=== PATIENT | male | born 1945 | race Caucasian/White ===

== ENCOUNTER 2017-11-12 08:55 | Inpatient (IN) | payer MEDICARE ==
[~2017-11-12] VITALS: Ht 188 cm; Wt 99.1 kg
[~2017-11-12 08:55] MED LIST: ACET325 PO; ASPI81CH PO; ATORVASTATIN CA10 MG PO; Atenolol25 MG PO; FERR325 PO; FINA5 PO; FURO20 PO; LEVO750 PO; METSALMENC TOP; Norco 10-325 T1 EACH PO; Nortriptyline H10 MG PO; OMEP20ER PO; OXYB5 PO; PRAV20 PO
[2017-11-12 09:35] LABS: BASOPHILS ABSOLUTE AUTO 0.03 K/mm3 (0.00-0.23); BASOPHILS PERCENT AUTO 0 % (0-2); EOSINOPHILS ABSOLUTE AUTO 0.02 K/mm3 (0.00-0.68); EOSINOPHILS PERCENT AUTO 0 % (0-6); Hematocrit 36.3 % (37.0-53.0); Hemoglobin 11.6 g/dL (13.5-17.5); IMMATURE GRAN ABSOLUTE AUTO 0.06 K/mm3 (0.00-0.10); IMMATURE GRAN PERCENT AUTO 1 % (0-1); LYMPHOCYTES ABSOLUTE AUTO 1.21 K/mm3 (0.84-5.20); LYMPHOCYTES PERCENT AUTO 12 % (21-46); MONOCYTES ABSOLUTE AUTO 0.38 K/mm3 (0.16-1.47); MONOCYTES PERCENT AUTO 4 % (4-13); Mean Corpuscular HGB 25.7 pg (26.0-34.0); Mean Corpuscular Volume 81 fL (80-100); Mean Platelet Volume 8.9 fL (9.1-12.4); NEUTROPHILS ABSOLUTE AUTO 8.84 K/mm3 (1.96-9.15); NEUTROPHILS PERCENT AUTO 84 % (41-73); Platelet Count 270 K/mm3 (150-400); RDW Coefficient Variation 15.8 % (11.7-14.2); RDW Standard Deviation 46.5 fL (35.1-46.3); Red Blood Cell Count 4.51 M/mm3 (4.30-5.90); White Blood Cell Count 10.54 K/mm3 (4.00-11.30)
[2017-11-12 09:48] LABS: Source, Urine Clean Catch
[2017-11-12 09:54] LABS: Alanine Aminotransfer (ALT/SGP 18 U/L (12-78); Albumin, Blood 3.4 g/dL (3.4-5.0); Albumin/Globulin Ratio 0.8 (0.8-1.8); Alk Phos 175 U/L (50-136); Anion Gap 13 mmol/L (6-16); Aspartate Aminotrans (AST/SGOT 17 U/L (12-37); Bilirubin, Total 0.2 mg/dL (0.1-1.0); Blood Urea Nitrogen 12 mg/dL (8-24); Bun/Creatinine Ratio 8.6 (12.0-20.0); CO2, Blood 23 mmol/L (21-32); Calcium, Blood 8.8 mg/dL (8.5-10.1); Chloride, Blood 103 mmol/L (98-108); Creatinine, Blood 1.39 mg/dL (0.60-1.20); Globulin, Blood 4.4 g/dL (2.2-4.0); Glomerular Filtration Rate 53 (60-); Glucose, Blood 200 mg/dL (70-99); Potassium, Blood 3.3 mmol/L (3.5-5.5); Sodium, Blood 139 mmol/L (136-145); Total Protein, Blood 7.8 g/dL (6.4-8.2); Troponin I <0.015 ng/mL (0.000-0.040)
[2017-11-12 10:02] LABS: Bilirubin, Urine Neg (Neg); Blood, Urine 3+ (Neg); Glucose Qualitative, Urine 2+ (Neg); Ketones, Urine 1+ (Neg); Leukocyte Esterase, Urine 3+ (Neg); Nitrite, Urine Neg (Neg); Protein, Urine 2+ (Neg); Specific Gravity, Urine 1.025 (1.003-1.022); Urobilinogen, Urine NORM (Normal)
[2017-11-12 10:43] LABS: Appearance, Urine Hazy (Clear); Color, Urine Yellow (P-Yellow)
[2017-11-12 10:45] LABS: White Blood Cells, Urine 25-50 /hpf (0-5)
[2017-11-12 10:46] LABS: Bacteria Mod /hpf; Squamous Epithelial Cells Few /hpf (Few); Uric Acid Crystals Mod /hpf
[2017-11-13 04:22] LABS: BASOPHILS ABSOLUTE AUTO 0.04 K/mm3 (0.00-0.23); BASOPHILS PERCENT AUTO 0 % (0-2); EOSINOPHILS ABSOLUTE AUTO 0.04 K/mm3 (0.00-0.68); EOSINOPHILS PERCENT AUTO 0 % (0-6); Hematocrit 36.8 % (37.0-53.0); Hemoglobin 11.3 g/dL (13.5-17.5); IMMATURE GRAN ABSOLUTE AUTO 0.05 K/mm3 (0.00-0.10); IMMATURE GRAN PERCENT AUTO 0 % (0-1); LYMPHOCYTES ABSOLUTE AUTO 3.35 K/mm3 (0.84-5.20); LYMPHOCYTES PERCENT AUTO 25 % (21-46); MONOCYTES ABSOLUTE AUTO 0.99 K/mm3 (0.16-1.47); MONOCYTES PERCENT AUTO 7 % (4-13); Mean Corpuscular HGB 24.8 pg (26.0-34.0); Mean Corpuscular HGB Conc 30.7 g/dL (31.5-36.5); Mean Corpuscular Volume 81 fL (80-100); Mean Platelet Volume 9.2 fL (9.1-12.4); NEUTROPHILS ABSOLUTE AUTO 9.02 K/mm3 (1.96-9.15); NEUTROPHILS PERCENT AUTO 67 % (41-73); Platelet Count 251 K/mm3 (150-400); RDW Coefficient Variation 16.4 % (11.7-14.2); RDW Standard Deviation 47.8 fL (35.1-46.3); Red Blood Cell Count 4.55 M/mm3 (4.30-5.90); White Blood Cell Count 13.49 K/mm3 (4.00-11.30)
[2017-11-13 04:53] LABS: Bun/Creatinine Ratio 10.3 (12.0-20.0); Calcium, Blood 8.4 mg/dL (8.5-10.1); Creatinine, Blood 1.36 mg/dL (0.60-1.20); Potassium, Blood 3.5 mmol/L (3.5-5.5)
[2017-11-14 04:51] LABS: BASOPHILS ABSOLUTE AUTO 0.04 K/mm3 (0.00-0.23); BASOPHILS PERCENT AUTO 1 % (0-2); EOSINOPHILS ABSOLUTE AUTO 0.23 K/mm3 (0.00-0.68); EOSINOPHILS PERCENT AUTO 3 % (0-6); Hematocrit 31.2 % (37.0-53.0); Hemoglobin 9.9 g/dL (13.5-17.5); IMMATURE GRAN ABSOLUTE AUTO 0.03 K/mm3 (0.00-0.10); IMMATURE GRAN PERCENT AUTO 0 % (0-1); LYMPHOCYTES PERCENT AUTO 32 % (21-46); MONOCYTES ABSOLUTE AUTO 0.55 K/mm3 (0.16-1.47); MONOCYTES PERCENT AUTO 6 % (4-13); Mean Corpuscular HGB 25.5 pg (26.0-34.0); Mean Corpuscular HGB Conc 31.7 g/dL (31.5-36.5); Mean Corpuscular Volume 80 fL (80-100); Mean Platelet Volume 9.1 fL (9.1-12.4); NEUTROPHILS ABSOLUTE AUTO 5.11 K/mm3 (1.96-9.15); NEUTROPHILS PERCENT AUTO 58 % (41-73); Platelet Count 229 K/mm3 (150-400); RDW Coefficient Variation 16.3 % (11.7-14.2); RDW Standard Deviation 47.5 fL (35.1-46.3); Red Blood Cell Count 3.88 M/mm3 (4.30-5.90); White Blood Cell Count 8.76 K/mm3 (4.00-11.30)
[2017-11-14 05:18] LABS: Bun/Creatinine Ratio 9.9 (12.0-20.0); Calcium, Blood 7.9 mg/dL (8.5-10.1); Creatinine, Blood 1.31 mg/dL (0.60-1.20); Potassium, Blood 3.3 mmol/L (3.5-5.5)
[2017-11-14] MEDS ORDERED: LEVE500 PO (13:55)
== END 2017-11-14 17:23 | disposition home or self-care (01) | DRG 699 ==
LOC: ER 08:55 → PCU 11:09 → MEDS 11:09 → EDBEDREQSVC 13:19 → MEDS 18:02 → PCU 18:10 → MEDS 11-13 16:44 → ENPENDDIS 11-14 13:46 → MEDS 11-14 17:23
PROVIDERS: Emergency Medicine; Internal Medicine
DX: T83.511A Infection and inflammatory reaction due to indwelling urethral catheter, initial encounter (principal); N17.9 Acute kidney failure, unspecified; N39.0 Urinary tract infection, site not specified; G40.409 Other generalized epilepsy and epileptic syndromes, not intractable, without status epilepticus; R40.2422 Glasgow coma scale score 9-12, at arrival to emergency department; I10 Essential (primary) hypertension; N40.1 Benign prostatic hyperplasia with lower urinary tract symptoms; R33.9 Retention of urine, unspecified; D64.9 Anemia, unspecified; Z79.82 Long term (current) use of aspirin; I67.9 Cerebrovascular disease, unspecified; R26.89 Other abnormalities of gait and mobility; E87.6 Hypokalemia; I69.322 Dysarthria following cerebral infarction; I69.391 Dysphagia following cerebral infarction
CPT/HCPCS: 36415; 70450; 70551; 80048; 80053; 81001; 84484; 85025; 87077; 87086; 87186; 92610; 93005; 93010; 96365; 96368; 96375; 99285; G8996; G8997; J0696; J1650; J1953; J2060; J2405; J7030; J7040

== ENCOUNTER 2018-01-12 11:01 | Inpatient (IN) | payer MEDICARE ==
[~2018-01-12] VITALS: Ht 182.9 cm; Wt 82.1 kg
[~2018-01-12 11:01] MED LIST changes: +LEVE500 PO; -OMEP20ER PO; +OMEPRAZOLE MAGN20 MG PO
[2018-01-12 11:45] LABS: Calcium, Ionized (POC) 1.16 mmol/L (1.10-1.46); Chloride (POC) 101 mmol/L (98-108); Creatinine (POC) 1.4 mg/dL (0.8-1.3); Glucose (ISTAT POC) 147 mg/dL (70-99); Hemoglobin (POC) 13.6 g/dL (13.5-17.5); Potassium (POC) 4.3 mmol/L (3.5-5.5); Sodium (POC) 141 mmol/L (135-148); Total CO2 (POC) 27 mmol/L (21-32)
[2018-01-12 11:46] LABS: BASOPHILS ABSOLUTE AUTO 0.04 K/mm3 (0.00-0.23); BASOPHILS PERCENT AUTO 0 % (0-2); EOSINOPHILS ABSOLUTE AUTO 0.01 K/mm3 (0.00-0.68); EOSINOPHILS PERCENT AUTO 0 % (0-6); Hematocrit 38.1 % (37.0-53.0); Hemoglobin 11.9 g/dL (13.5-17.5); IMMATURE GRAN ABSOLUTE AUTO 0.04 K/mm3 (0.00-0.10); IMMATURE GRAN PERCENT AUTO 0 % (0-1); LYMPHOCYTES PERCENT AUTO 18 % (21-46); MONOCYTES ABSOLUTE AUTO 0.41 K/mm3 (0.16-1.47); MONOCYTES PERCENT AUTO 4 % (4-13); Mean Corpuscular HGB 25.9 pg (26.0-34.0); Mean Corpuscular HGB Conc 31.2 g/dL (31.5-36.5); Mean Corpuscular Volume 83 fL (80-100); Mean Platelet Volume 9.4 fL (9.1-12.4); NEUTROPHILS ABSOLUTE AUTO 9.16 K/mm3 (1.96-9.15); NEUTROPHILS PERCENT AUTO 78 % (41-73); Platelet Count 303 K/mm3 (150-400); RDW Standard Deviation 48.5 fL (35.1-46.3); White Blood Cell Count 11.76 K/mm3 (4.00-11.30)
[2018-01-12 12:02] LABS: Albumin, Blood 3.9 g/dL (3.4-5.0); Albumin/Globulin Ratio 0.8 (0.8-1.8); Bilirubin, Total 0.4 mg/dL (0.1-1.0); Bun/Creatinine Ratio 12.4 (12.0-20.0); Calcium, Blood 9.2 mg/dL (8.5-10.1); Creatinine, Blood 1.37 mg/dL (0.60-1.20); Potassium, Blood 4.3 mmol/L (3.5-5.5); Total Protein, Blood 8.9 g/dL (6.4-8.2)
[2018-01-12 12:08] LABS: Source, Urine Catheter
[2018-01-12 12:21] LABS: Bilirubin, Urine Neg (Neg); Blood, Urine 4+ (Neg); Glucose Qualitative, Urine Neg (Neg); Ketones, Urine 1+ (Neg); Leukocyte Esterase, Urine 3+ (Neg); Nitrite, Urine Pos (Neg); Protein, Urine 3+ (Neg); Specific Gravity, Urine 1.015 (1.003-1.022); Urobilinogen, Urine NORM (Normal)
[2018-01-12 12:39] LABS: Appearance, Urine Turbid (Clear); Color, Urine Yellow (P-Yellow)
[2018-01-12 12:42] LABS: Amorphous Light (0-Heavy); Bacteria Mod /hpf; Hyaline Casts 0-2 /lpf (0-2); Mucus Mod (0-Heavy); Squamous Epithelial Cells Rare /hpf (Few); White Blood Cells, Urine 50-100 /hpf (0-5)
[2018-01-13 06:07] LABS: BASOPHILS ABSOLUTE AUTO 0.06 K/mm3 (0.00-0.23); BASOPHILS PERCENT AUTO 0 % (0-2); EOSINOPHILS ABSOLUTE AUTO 0.01 K/mm3 (0.00-0.68); EOSINOPHILS PERCENT AUTO 0 % (0-6); Hematocrit 37.1 % (37.0-53.0); Hemoglobin 11.1 g/dL (13.5-17.5); IMMATURE GRAN ABSOLUTE AUTO 0.13 K/mm3 (0.00-0.10); IMMATURE GRAN PERCENT AUTO 1 % (0-1); LYMPHOCYTES PERCENT AUTO 15 % (21-46); MONOCYTES ABSOLUTE AUTO 0.91 K/mm3 (0.16-1.47); MONOCYTES PERCENT AUTO 5 % (4-13); Mean Corpuscular HGB 25.1 pg (26.0-34.0); Mean Corpuscular HGB Conc 29.9 g/dL (31.5-36.5); Mean Corpuscular Volume 84 fL (80-100); Mean Platelet Volume 9.4 fL (9.1-12.4); NEUTROPHILS ABSOLUTE AUTO 14.22 K/mm3 (1.96-9.15); NEUTROPHILS PERCENT AUTO 79 % (41-73); Platelet Count 267 K/mm3 (150-400); RDW Coefficient Variation 16.3 % (11.7-14.2); RDW Standard Deviation 49.5 fL (35.1-46.3); Red Blood Cell Count 4.43 M/mm3 (4.30-5.90); White Blood Cell Count 18.13 K/mm3 (4.00-11.30)
[2018-01-13 06:28] LABS: Alanine Aminotransfer (ALT/SGP 18 U/L (12-78); Albumin, Blood 3.4 g/dL (3.4-5.0); Albumin/Globulin Ratio 0.8 (0.8-1.8); Alk Phos 115 U/L (50-136); Anion Gap 11 mmol/L (6-16); Aspartate Aminotrans (AST/SGOT 20 U/L (12-37); Bilirubin, Total 0.5 mg/dL (0.1-1.0); Blood Urea Nitrogen 28 mg/dL (8-24); Bun/Creatinine Ratio 24.3 (12.0-20.0); CO2, Blood 22 mmol/L (21-32); Calcium, Blood 8.8 mg/dL (8.5-10.1); Chloride, Blood 109 mmol/L (98-108); Creatinine, Blood 1.15 mg/dL (0.60-1.20); Globulin, Blood 4.2 g/dL (2.2-4.0); Glomerular Filtration Rate >60 (60-); Glucose, Blood 137 mg/dL (70-99); Magnesium, Blood 2.2 mg/dL (1.6-2.4); Potassium, Blood 3.9 mmol/L (3.5-5.5); Sodium, Blood 142 mmol/L (136-145); Total Protein, Blood 7.6 g/dL (6.4-8.2); Triglycerides 223 mg/dL (30-160); Very Low Density Lipoprot Chol 44 mg/dL (6-32)
[2018-01-13 06:32] LABS: CHOL/HDL RATIO 5.2; Cholesterol 176 mg/dL (50-200); HDL Cholesterol 34 mg/dL (>39); LDL/HDL RATIO 2.9; Low Density Lipoprotein Chol 97 mg/dL (0-110)
[2018-01-14 05:39] LABS: BASOPHILS ABSOLUTE AUTO 0.05 K/mm3 (0.00-0.23); BASOPHILS PERCENT AUTO 1 % (0-2); EOSINOPHILS ABSOLUTE AUTO 0.23 K/mm3 (0.00-0.68); EOSINOPHILS PERCENT AUTO 2 % (0-6); Hematocrit 30.9 % (37.0-53.0); Hemoglobin 9.4 g/dL (13.5-17.5); IMMATURE GRAN ABSOLUTE AUTO 0.04 K/mm3 (0.00-0.10); IMMATURE GRAN PERCENT AUTO 0 % (0-1); LYMPHOCYTES PERCENT AUTO 28 % (21-46); MONOCYTES ABSOLUTE AUTO 0.64 K/mm3 (0.16-1.47); MONOCYTES PERCENT AUTO 6 % (4-13); Mean Corpuscular HGB 25.3 pg (26.0-34.0); Mean Corpuscular HGB Conc 30.4 g/dL (31.5-36.5); Mean Corpuscular Volume 83 fL (80-100); Mean Platelet Volume 9.2 fL (9.1-12.4); NEUTROPHILS ABSOLUTE AUTO 6.42 K/mm3 (1.96-9.15); NEUTROPHILS PERCENT AUTO 63 % (41-73); Platelet Count 208 K/mm3 (150-400); RDW Coefficient Variation 16.4 % (11.7-14.2); RDW Standard Deviation 49.7 fL (35.1-46.3); Red Blood Cell Count 3.71 M/mm3 (4.30-5.90); White Blood Cell Count 10.28 K/mm3 (4.00-11.30)
[2018-01-14 06:33] LABS: Alanine Aminotransfer (ALT/SGP 23 U/L (12-78); Albumin/Globulin Ratio 0.8 (0.8-1.8); Alk Phos 104 U/L (50-136); Anion Gap 7 mmol/L (6-16); Aspartate Aminotrans (AST/SGOT 21 U/L (12-37); Bilirubin, Total 0.4 mg/dL (0.1-1.0); Blood Urea Nitrogen 20 mg/dL (8-24); CO2, Blood 25 mmol/L (21-32); Chloride, Blood 111 mmol/L (98-108); Creatinine, Blood 1.25 mg/dL (0.60-1.20); Globulin, Blood 3.8 g/dL (2.2-4.0); Glomerular Filtration Rate >60 (60-); Glucose, Blood 118 mg/dL (70-99); Sodium, Blood 143 mmol/L (136-145); Total Protein, Blood 6.8 g/dL (6.4-8.2)
[2018-01-15 05:16] LABS: BASOPHILS ABSOLUTE AUTO 0.04 K/mm3 (0.00-0.23); BASOPHILS PERCENT AUTO 0 % (0-2); EOSINOPHILS ABSOLUTE AUTO 0.19 K/mm3 (0.00-0.68); EOSINOPHILS PERCENT AUTO 2 % (0-6); Hematocrit 29.5 % (37.0-53.0); Hemoglobin 9.1 g/dL (13.5-17.5); IMMATURE GRAN ABSOLUTE AUTO 0.03 K/mm3 (0.00-0.10); IMMATURE GRAN PERCENT AUTO 0 % (0-1); LYMPHOCYTES ABSOLUTE AUTO 2.35 K/mm3 (0.84-5.20); LYMPHOCYTES PERCENT AUTO 26 % (21-46); MONOCYTES ABSOLUTE AUTO 0.69 K/mm3 (0.16-1.47); MONOCYTES PERCENT AUTO 8 % (4-13); Mean Corpuscular HGB 25.5 pg (26.0-34.0); Mean Corpuscular HGB Conc 30.8 g/dL (31.5-36.5); Mean Corpuscular Volume 83 fL (80-100); Mean Platelet Volume 9.5 fL (9.1-12.4); NEUTROPHILS ABSOLUTE AUTO 5.68 K/mm3 (1.96-9.15); NEUTROPHILS PERCENT AUTO 63 % (41-73); Platelet Count 186 K/mm3 (150-400); RDW Coefficient Variation 16.2 % (11.7-14.2); RDW Standard Deviation 48.4 fL (35.1-46.3); Red Blood Cell Count 3.57 M/mm3 (4.30-5.90); White Blood Cell Count 8.98 K/mm3 (4.00-11.30)
[2018-01-15 06:02] LABS: Albumin, Blood 2.8 g/dL (3.4-5.0); Albumin/Globulin Ratio 0.8 (0.8-1.8); Bilirubin, Total 0.4 mg/dL (0.1-1.0); Bun/Creatinine Ratio 12.5 (12.0-20.0); Creatinine, Blood 1.28 mg/dL (0.60-1.20); Globulin, Blood 3.7 g/dL (2.2-4.0); Potassium, Blood 3.8 mmol/L (3.5-5.5); Total Protein, Blood 6.5 g/dL (6.4-8.2)
[2018-01-15] MEDS ORDERED: QUET25 PO (15:05)
[2018-01-15] MEDS ORDERED: LEVFLO500 PO (15:05)
== END 2018-01-15 16:32 | disposition home health service (06) | DRG 70 ==
LOC: ER 11:01 → MEDS 13:29
PROVIDERS: Internal Medicine
DX: G93.40 Encephalopathy, unspecified (principal); J18.9 Pneumonia, unspecified organism; N17.9 Acute kidney failure, unspecified; R47.01 Aphasia; N39.0 Urinary tract infection, site not specified; F03.90 Unspecified dementia, unspecified severity, without behavioral disturbance, psychotic disturbance, mood disturbance, and anxiety; I12.9 Hypertensive chronic kidney disease with stage 1 through stage 4 chronic kidney disease, or unspecified chronic kidney disease; N18.3 Chronic kidney disease, stage 3 (moderate); I67.9 Cerebrovascular disease, unspecified; G40.909 Epilepsy, unspecified, not intractable, without status epilepticus; D72.829 Elevated white blood cell count, unspecified; Z79.899 Other long term (current) drug therapy; Z79.82 Long term (current) use of aspirin; Z86.73 Personal history of transient ischemic attack (TIA), and cerebral infarction without residual deficits
CPT/HCPCS: 36415; 70450; 71046; 80047; 80053; 80061; 81001; 83735; 83880; 84484; 85014; 85025; 87077; 87086; 87186; 92526; 92610; 93005; 93010; 97162; 97166; 97530; 97535; 99285-25; G8978; G8979; G8987; G8988; G8996; G8997; J0456; J0696; J1650; J2060; J2405; J7030; J7050

== ENCOUNTER 2018-03-25 04:47 | Inpatient (IN) | payer MEDICARE ==
[~2018-03-25] VITALS: Ht 182.9 cm; Wt 104.5 kg
[~2018-03-25 04:47] MED LIST changes: +AMOX875 PO; +ASCO500 PO; +Aspirin EC81 MG PO; +CHOL10002 PO; +DOCU100 PO; +Ferrous Sulfat325 M2 PO; +GAVILAX17 GM PO; +LEVFLO500 PO; +QUET25 PO
[2018-03-25 05:04] LABS: BASOPHILS ABSOLUTE AUTO 0.03 K/mm3 (0.00-0.23); BASOPHILS PERCENT AUTO 0 % (0-2); EOSINOPHILS ABSOLUTE AUTO 0.06 K/mm3 (0.00-0.68); EOSINOPHILS PERCENT AUTO 1 % (0-6); Hematocrit 29.1 % (37.0-53.0); Hemoglobin 8.5 g/dL (13.5-17.5); IMMATURE GRAN ABSOLUTE AUTO 0.05 K/mm3 (0.00-0.10); IMMATURE GRAN PERCENT AUTO 1 % (0-1); LYMPHOCYTES ABSOLUTE AUTO 0.87 K/mm3 (0.84-5.20); LYMPHOCYTES PERCENT AUTO 8 % (21-46); MONOCYTES ABSOLUTE AUTO 0.58 K/mm3 (0.16-1.47); MONOCYTES PERCENT AUTO 5 % (4-13); Mean Corpuscular HGB 24.6 pg (26.0-34.0); Mean Corpuscular HGB Conc 29.2 g/dL (31.5-36.5); Mean Corpuscular Volume 84 fL (80-100); NEUTROPHILS PERCENT AUTO 85 % (41-73); RDW Coefficient Variation 16.3 % (11.7-14.2); RDW Standard Deviation 50.4 fL (35.1-46.3); Red Blood Cell Count 3.45 M/mm3 (4.30-5.90); White Blood Cell Count 10.89 K/mm3 (4.00-11.30)
[2018-03-25 05:24] LABS: Alanine Aminotransfer (ALT/SGP 23 U/L (12-78); Albumin, Blood 2.9 g/dL (3.4-5.0); Albumin/Globulin Ratio 0.7 (0.8-1.8); Alk Phos 156 U/L (50-136); Anion Gap 14 mmol/L (6-16); Aspartate Aminotrans (AST/SGOT 24 U/L (12-37); Bilirubin, Total 0.2 mg/dL (0.1-1.0); Blood Urea Nitrogen 14 mg/dL (8-24); Bun/Creatinine Ratio 11.5 (12.0-20.0); CO2, Blood 18 mmol/L (21-32); Calcium, Blood 7.7 mg/dL (8.5-10.1); Chloride, Blood 109 mmol/L (98-108); Creatinine, Blood 1.22 mg/dL (0.60-1.20); Globulin, Blood 4.4 g/dL (2.2-4.0); Glomerular Filtration Rate >60 (60-); Glucose, Blood 165 mg/dL (70-99); Potassium, Blood 3.6 mmol/L (3.5-5.5); Sodium, Blood 141 mmol/L (136-145); Total Protein, Blood 7.3 g/dL (6.4-8.2)
[2018-03-25] MEDS ORDERED: FURO40 PO (05:25)
[2018-03-25 05:31] LABS: Mean Platelet Volume 8.8 fL (9.1-12.4); Platelet Count 131 K/mm3 (150-400)
[2018-03-25 17:09] LABS: Source, Urine Clean Catch
[2018-03-25 17:26] LABS: Appearance, Urine Clear (Clear); Bilirubin, Urine Neg (Neg); Blood, Urine Neg (Neg); Color, Urine Yellow (P-Yellow); Glucose Qualitative, Urine Neg (Neg); Ketones, Urine Neg (Neg); Leukocyte Esterase, Urine Neg (Neg); Nitrite, Urine Neg (Neg); Protein, Urine Neg (Neg); Urobilinogen, Urine NORM (Normal); pH, Urine 6.5 (5.0-8.0)
[2018-03-25 17:41] LABS: U Amphetamine Screen Not Detected; U Barbituate Screen Not Detected; U Benzodiazapine Screen Not Detected; U Cocaine Screen Not Detected; U Methadone Screen Not Detected; U Methamphetamine Screen Not Detected; U Opiates Screen DETECTED; U Phencyclidine Screen Not Detected
[2018-03-25 17:42] LABS: U Buprenorphine Screen Not Detected; U Cannabinoids Screen Not Detected; U Oxycodone Screen Not Detected; U Propoxyphene Screen Not Detected
[2018-03-26 05:43] LABS: Hematocrit 25.6 % (37.0-53.0); Hemoglobin 7.7 g/dL (13.5-17.5); Mean Corpuscular HGB 24.4 pg (26.0-34.0); Mean Corpuscular HGB Conc 30.1 g/dL (31.5-36.5); Mean Platelet Volume 8.2 fL (9.1-12.4); Platelet Count 328 K/mm3 (150-400); RDW Coefficient Variation 16.4 % (11.7-14.2); Red Blood Cell Count 3.16 M/mm3 (4.30-5.90); White Blood Cell Count 6.88 K/mm3 (4.00-11.30)
[2018-03-26 05:46] LABS: Mean Corpuscular Volume 81 fL (80-100)
[2018-03-26 06:03] LABS: Alanine Aminotransfer (ALT/SGP 19 U/L (12-78); Albumin, Blood 2.5 g/dL (3.4-5.0); Albumin/Globulin Ratio 0.7 (0.8-1.8); Alk Phos 140 U/L (50-136); Anion Gap 6 mmol/L (6-16); Aspartate Aminotrans (AST/SGOT 25 U/L (12-37); Bilirubin, Total 0.4 mg/dL (0.1-1.0); Blood Urea Nitrogen 10 mg/dL (8-24); Bun/Creatinine Ratio 8.3 (12.0-20.0); CO2, Blood 28 mmol/L (21-32); Calcium, Blood 7.6 mg/dL (8.5-10.1); Chloride, Blood 111 mmol/L (98-108); Globulin, Blood 3.7 g/dL (2.2-4.0); Glomerular Filtration Rate >60 (60-); Glucose, Blood 107 mg/dL (70-99); Potassium, Blood 3.2 mmol/L (3.5-5.5); Sodium, Blood 145 mmol/L (136-145); Total Protein, Blood 6.2 g/dL (6.4-8.2)
[2018-03-27 04:10] LABS: BASOPHILS ABSOLUTE AUTO 0.03 K/mm3 (0.00-0.23); BASOPHILS PERCENT AUTO 0 % (0-2); EOSINOPHILS PERCENT AUTO 3 % (0-6); Hemoglobin 8.2 g/dL (13.5-17.5); IMMATURE GRAN ABSOLUTE AUTO 0.02 K/mm3 (0.00-0.10); IMMATURE GRAN PERCENT AUTO 0 % (0-1); LYMPHOCYTES ABSOLUTE AUTO 2.38 K/mm3 (0.84-5.20); LYMPHOCYTES PERCENT AUTO 35 % (21-46); MONOCYTES ABSOLUTE AUTO 0.37 K/mm3 (0.16-1.47); MONOCYTES PERCENT AUTO 6 % (4-13); Mean Corpuscular HGB 23.9 pg (26.0-34.0); Mean Corpuscular HGB Conc 29.3 g/dL (31.5-36.5); Mean Corpuscular Volume 82 fL (80-100); Mean Platelet Volume 8.5 fL (9.1-12.4); NEUTROPHILS ABSOLUTE AUTO 3.72 K/mm3 (1.96-9.15); NEUTROPHILS PERCENT AUTO 55 % (41-73); Platelet Count 394 K/mm3 (150-400); RDW Coefficient Variation 16.2 % (11.7-14.2); RDW Standard Deviation 48.6 fL (35.1-46.3); Red Blood Cell Count 3.43 M/mm3 (4.30-5.90); White Blood Cell Count 6.72 K/mm3 (4.00-11.30)
[2018-03-27 04:33] LABS: Anion Gap 8 mmol/L (6-16); Blood Urea Nitrogen 12 mg/dL (8-24); Bun/Creatinine Ratio 10.4 (12.0-20.0); CO2, Blood 26 mmol/L (21-32); Calcium, Blood 8.2 mg/dL (8.5-10.1); Chloride, Blood 108 mmol/L (98-108); Creatinine, Blood 1.15 mg/dL (0.60-1.20); Glomerular Filtration Rate >60 (60-); Glucose, Blood 117 mg/dL (70-99); Potassium, Blood 3.3 mmol/L (3.5-5.5); Sodium, Blood 142 mmol/L (136-145)
[2018-03-27] MEDS ORDERED: Aspir 8181 MG PO (10:19)
[2018-03-27] MEDS ORDERED: XARELTO20 MG PO (10:20)
== END 2018-03-27 16:17 | disposition home or self-care (01) | DRG 101 ==
LOC: ER 04:47 → PCU 06:32
PROVIDERS: Emergency Medicine; Internal Medicine
DX: G40.909 Epilepsy, unspecified, not intractable, without status epilepticus (principal); G93.40 Encephalopathy, unspecified; Z86.73 Personal history of transient ischemic attack (TIA), and cerebral infarction without residual deficits; N40.0 Benign prostatic hyperplasia without lower urinary tract symptoms; Z79.82 Long term (current) use of aspirin; Z87.440 Personal history of urinary (tract) infections; G89.29 Other chronic pain; N18.1 Chronic kidney disease, stage 1; I67.9 Cerebrovascular disease, unspecified; D64.9 Anemia, unspecified; I12.9 Hypertensive chronic kidney disease with stage 1 through stage 4 chronic kidney disease, or unspecified chronic kidney disease
CPT/HCPCS: 36415; 70450; 71045; 80048; 80053; 80177; 81003; 82330; 83605; 83735; 84145; 85025; 85027; 90686; 92526; 92610; 93005; 93010; 93971; 96374; 97162; 97166; 97530; 97535; 99285-25; G0008; G8978; G8979; G8980; G8987; G8988; G8989; G8996; G8997; G8998; J0690; J1650; J1953; J7030

== ENCOUNTER 2018-06-10 14:16 | Inpatient (IN) | payer OTHER, MEDICARE ==
[~2018-06-10] VITALS: Ht 182.9 cm; Wt 107.9 kg
[~2018-06-10 14:16] MED LIST changes: +Aspir 8181 MG PO; +FURO40 PO; +XARELTO20 MG PO
[2018-06-10] MEDS ORDERED: HYDR1TAB94 PO (14:29)
--- NOTE | 2018-06-10 22:47 | NUR ---
PATIENT ADMISSION THE PATIENT WAS ADMITTED TO THE SURGICAL FLOOR AT 1930 FOR ACUTE APPENDICITIS. THE PATIENT HAD A ELEVATED LACTIC ACID ON ADMISSION AT 3.4. THE PATIENT WAS ALERT TO PLACE, DAY AND PERSON, BUT COULD NOT TELL ME ABOUT THE LAST TIME HE TOOK HIS MEDICATIONS. THE PATIENT IS INCONTENTENT OF URINE. PATIENT'S ADMISSION WAS COMPLETED AND IV FLUIDS WERE STARTED. THE PATIENT RECEIVED ORDERS FOR A 3000 ML BOLUS OF LAC RIN. AT 2200. THE BOLUS IS INFUSING, WILL CONTINUE TO MONITOR.
[2018-06-11 04:52] LABS: BASOPHILS ABSOLUTE AUTO 0.05 K/mm3 (0.00-0.23); BASOPHILS PERCENT AUTO 0 % (0-2); EOSINOPHILS ABSOLUTE AUTO 0.07 K/mm3 (0.00-0.68); EOSINOPHILS PERCENT AUTO 1 % (0-6); Hemoglobin 9.2 g/dL (13.5-17.5); IMMATURE GRAN ABSOLUTE AUTO 0.08 K/mm3 (0.00-0.10); IMMATURE GRAN PERCENT AUTO 1 % (0-1); LYMPHOCYTES ABSOLUTE AUTO 2.16 K/mm3 (0.84-5.20); LYMPHOCYTES PERCENT AUTO 15 % (21-46); MONOCYTES ABSOLUTE AUTO 0.61 K/mm3 (0.16-1.47); MONOCYTES PERCENT AUTO 4 % (4-13); Mean Corpuscular HGB 22.3 pg (26.0-34.0); Mean Corpuscular HGB Conc 28.8 g/dL (31.5-36.5); Mean Corpuscular Volume 78 fL (80-100); Mean Platelet Volume 8.3 fL (9.1-12.4); NEUTROPHILS PERCENT AUTO 80 % (41-73); Platelet Count 296 K/mm3 (150-400); RDW Coefficient Variation 18.9 % (11.7-14.2); RDW Standard Deviation 53.9 fL (35.1-46.3); Red Blood Cell Count 4.13 M/mm3 (4.30-5.90); White Blood Cell Count 14.47 K/mm3 (4.00-11.30)
[2018-06-11 05:22] LABS: Albumin, Blood 2.6 g/dL (3.4-5.0); Albumin/Globulin Ratio 0.7 (0.8-1.8); Bilirubin, Total 0.9 mg/dL (0.1-1.0); Bun/Creatinine Ratio 9.2 (12.0-20.0); Calcium, Blood 7.9 mg/dL (8.5-10.1); Creatinine, Blood 1.3 mg/dL (0.60-1.20); Globulin, Blood 3.9 g/dL (2.2-4.0); Potassium, Blood 3.8 mmol/L (3.5-5.5); Total Protein, Blood 6.5 g/dL (6.4-8.2)
--- NOTE | 2018-06-11 06:27 | NUR ---
SUMMARY FUID BOLUS COMPLETED, PT TOLERATED WELL, LUNGS REMAIN DIMISHED IN BASES, NO CRACKLES NOTED. PT REMAINS ON 2 L O2 VIA NC. VSS, PAIN MEDICATED X1 WITH 25 MCG IV FENATANYL PER EMAR. PT IS INCONTINENT OF URINE BUT HAS GOTTEN UP TO THE BSC X2. ATTENDS CHANGED PRN. LR INFUSING 100 ML/HR. PT IS NSR PER TELE MONITOR. NPO SINCE ADMISSION. WCTM, CALL LIGHT IN REACH
--- NOTE | 2018-06-11 07:00 | NUR ---
REPORT RECEIVED. ASSUMED PT CARE AT THIS TIME.
--- NOTE | 2018-06-11 07:30 | NUR ---
PT RESTING IN POSITION OF COMFORT. DENIES IMMEDIATE NEEDS. PT SLOW TO RESPOND. WARM BLANKET PROVIDED.
--- NOTE | 2018-06-11 09:16 | NUR ---
RIGHT AC IV INTACT AND INFUSING WELL. PT APPEARS TO HAVE REMOVED OTHER IV ACCESS. NO SIGNS OF BLEEDING NOTED.
--- NOTE | 2018-06-11 09:42 | NUR ---
PT MEDICATED PER EMAR. CARLOSN.
--- NOTE | 2018-06-11 09:47 | NUR ---
PT MEDICATED PER EMAR. PT RESPONSIVE. ABLE TO ANSWER YES/NO QUESTIONS.
--- NOTE | 2018-06-11 10:50 | NUR ---
DR DEMPSEY TO ROOM. PLAN TO ALLOW CLEAR LIQUID DIET TODAY AND PT TO OR TOMORROW.
--- NOTE | 2018-06-11 11:14 | NUR ---
AT BEDSIDE. UPDATED ON PLAN OF CARE RE . PT MEDICATED WITH FENTANYL FOR PAIN. ABX STARTED.
--- NOTE | 2018-06-11 12:11 | NUR ---
pt lying in position of comfort. lunch tray placed at bedside.
--- NOTE | 2018-06-11 13:30 | NUR ---
pt lying in position of comfort. nadn will cont to monitor. states pain is "ok" right now.
--- NOTE | 2018-06-11 15:05 | NUR ---
PT RESTING IN POSITION OF COMFORT. OLGA LIDIA.
--- NOTE | 2018-06-11 17:25 | NUR ---
PT RESTING. NADN. CALL LIGHT IN REACH.
--- NOTE | 2018-06-11 18:23 | NUR ---
ABX STARTED, REAPPLIED PTS O2. CALL LIGHT IN REACH. NADN.
--- NOTE | 2018-06-12 02:29 | NUR ---
HOSPITALIST NOTIFIED OF PT VOMITING ALL OVER HIMSELF WHILE SLEEPING, POSSIBLE ASPIRATION, AND INCREASED ABDOMINAL DISTENTION. NG INSERTION WAS ORDERED IF PT CONTINUES TO VOMIT. PT'S CURRENT IV ABX WILL COVER ASPIRATION PNEUMONIA PER HOSPITALIST, NO CHEST XRAY ORDERED AT THIS TIME. VSS, RESP UNLABORED. PT WAS GIVEN A BED BATH, LINENS WERE CHANGED AND ORAL CARE WAS DONE.
[2018-06-12 06:50] LABS: BASOPHILS ABSOLUTE AUTO 0.02 K/mm3 (0.00-0.23); BASOPHILS PERCENT AUTO 0 % (0-2); EOSINOPHILS ABSOLUTE AUTO 0.02 K/mm3 (0.00-0.68); EOSINOPHILS PERCENT AUTO 0 % (0-6); Hematocrit 29.9 % (37.0-53.0); Hemoglobin 8.6 g/dL (13.5-17.5); IMMATURE GRAN ABSOLUTE AUTO 0.07 K/mm3 (0.00-0.10); IMMATURE GRAN PERCENT AUTO 1 % (0-1); LYMPHOCYTES ABSOLUTE AUTO 1.57 K/mm3 (0.84-5.20); LYMPHOCYTES PERCENT AUTO 14 % (21-46); MONOCYTES ABSOLUTE AUTO 0.66 K/mm3 (0.16-1.47); MONOCYTES PERCENT AUTO 6 % (4-13); Mean Corpuscular HGB 22.3 pg (26.0-34.0); Mean Corpuscular HGB Conc 28.8 g/dL (31.5-36.5); Mean Corpuscular Volume 78 fL (80-100); Mean Platelet Volume 8.3 fL (9.1-12.4); NEUTROPHILS ABSOLUTE AUTO 9.27 K/mm3 (1.96-9.15); NEUTROPHILS PERCENT AUTO 80 % (41-73); Platelet Count 270 K/mm3 (150-400); RDW Coefficient Variation 18.8 % (11.7-14.2); RDW Standard Deviation 53.1 fL (35.1-46.3); Red Blood Cell Count 3.85 M/mm3 (4.30-5.90); White Blood Cell Count 11.61 K/mm3 (4.00-11.30)
[2018-06-12 07:06] LABS: Albumin, Blood 2.1 g/dL (3.4-5.0); Anion Gap 7 mmol/L (6-16); Blood Urea Nitrogen 15 mg/dL (8-24); Bun/Creatinine Ratio 11.9 (12.0-20.0); CO2, Blood 26 mmol/L (21-32); Calcium, Blood 7.7 mg/dL (8.5-10.1); Chloride, Blood 111 mmol/L (98-108); Creatinine, Blood 1.26 mg/dL (0.60-1.20); Glomerular Filtration Rate 59 (60-); Glucose, Blood 153 mg/dL (70-99); Phosphorus, Blood 2.3 mg/dL (2.5-4.9); Potassium, Blood 3.9 mmol/L (3.5-5.5); Sodium, Blood 144 mmol/L (136-145)
--- NOTE | 2018-06-12 12:21 | NUR ---
PT LEFT FLOOR VIA BED WITH DAYSURGERY - OR
--- NOTE | 2018-06-12 12:24 | NUR ---
BROUGHT TO [facility] FROM SUGICAL FLOOR ROOM 226 AFTER DOING TWO PATIENT IDENTIFICATION. ADMISSION TO UNIT STARTED
--- NOTE | 2018-06-12 12:57 | NUR ---
NEW IV STARTED IN LAC AND LR AND 1200 ANTIBIOTIC STARTED AND CHARTED
--- NOTE | 2018-06-12 14:26 | NUR ---
06/12/18 1426 Gretchen Neff PT ON SCHEDULED ANTIBIOTICS AND RECIEVED PRIOR TO ARRIVAL TO OR.
--- NOTE | 2018-06-12 17:41 | NUR ---
SHIFT SUMMARY PT TRANSFERRED TO ICU FROM PACU. DELIVERED ALL PERSONAL ITEMS, INCLUDING DENTURES TO STALIN KAPADIA RN AND GAVE REPORT.
--- NOTE | 2018-06-12 18:14 | NUR ---
ASSUMED CARE: PT TRANSFER FROM DAY SURGERY AND SURGICAL FLOOR. REPORT RECIEVED FROM DAVID. PT IS QUIET IN BED. ON 15L VIA NONREBREATHER. SATTING 94% ON THIS. LUNG SOUNDS DIMINISHED IN BASES. PT WILL OPEN EYES, SQUEEZE HANDS BUT DOES NOT STAY AWAKE FOR LONG. SRINATH DRAIN IN PLACE PUTTING OUT ORANGE DRAINAGE. NG TUBE IN PLACE AT LIS. CALL TO DR GALE TO ENSURE THAT THIS ORDER WAS TO CONTINUE. ATTENDS IN PLACE. ABX, LACTATED RINGERS RUNNING AT THIS TIME PER ORDERS
--- NOTE | 2018-06-12 19:00 | NUR ---
ASSUMED CARE ASSUMED CARE OF PATIENT. CONTINUES TO BE DROWSY, BUT ROUSES TO VERBAL STIMULI. MOVES ALL EXTREMITES WEAKLY AND TO COMMAND. VERY SLOW AND MINIMAL VERBAL RESPONSE. REMAINS ON 15L NRB AT THIS TIME- WILL TRANSITION TO NS WHEN POSSIBLE. RESPIRATIONS EVEN AND UNLABORED. MONITOR SHOWS NSR, RATE 60-70s. BP STABLE. ABD SLIGHLTY DISTENDED, SOFT, WITH HYPOACTIVE BTs. LOWER ABD DRSG C/D/I. SRINATH DRAIN WITH SMALL AMOUNT OF SEROSANGUINOUS DRAINAGE. PAS TO BLE. LR INFUSING @ 100CC/HR PER ORDER. SEE SHIFT ASSESSMENT FOR FULL ASSESSMENT.
[2018-06-13 03:55] LABS: BASOPHILS ABSOLUTE AUTO 0.01 K/mm3 (0.00-0.23); BASOPHILS PERCENT AUTO 0 % (0-2); EOSINOPHILS PERCENT AUTO 0 % (0-6); Hematocrit 31.6 % (37.0-53.0); Hemoglobin 8.7 g/dL (13.5-17.5); IMMATURE GRAN ABSOLUTE AUTO 0.05 K/mm3 (0.00-0.10); IMMATURE GRAN PERCENT AUTO 1 % (0-1); LYMPHOCYTES ABSOLUTE AUTO 1.01 K/mm3 (0.84-5.20); LYMPHOCYTES PERCENT AUTO 10 % (21-46); MONOCYTES ABSOLUTE AUTO 0.24 K/mm3 (0.16-1.47); MONOCYTES PERCENT AUTO 2 % (4-13); Mean Corpuscular HGB 22.3 pg (26.0-34.0); Mean Corpuscular HGB Conc 27.5 g/dL (31.5-36.5); Mean Corpuscular Volume 81 fL (80-100); Mean Platelet Volume 8.9 fL (9.1-12.4); NEUTROPHILS ABSOLUTE AUTO 8.73 K/mm3 (1.96-9.15); NEUTROPHILS PERCENT AUTO 87 % (41-73); Platelet Count 254 K/mm3 (150-400); RDW Coefficient Variation 18.6 % (11.7-14.2); RDW Standard Deviation 54.4 fL (35.1-46.3); Red Blood Cell Count 3.91 M/mm3 (4.30-5.90); White Blood Cell Count 10.04 K/mm3 (4.00-11.30)
--- NOTE | 2018-06-13 04:00 | NUR ---
NG TUBE PT PULLED OUT NG TUBE. TUBE HAD MINIMAL DRAINAGE OUT T/O NOC (APPROXIMATELY 20CC) SO WILL NOT REPLACE NG AT THIS TIME AND WILL CONTINUE TO MONITOR.
[2018-06-13 04:12] LABS: Albumin, Blood 1.9 g/dL (3.4-5.0); Anion Gap 5 mmol/L (6-16); Blood Urea Nitrogen 14 mg/dL (8-24); Bun/Creatinine Ratio 12.5 (12.0-20.0); CO2, Blood 23 mmol/L (21-32); Calcium, Blood 7.7 mg/dL (8.5-10.1); Chloride, Blood 114 mmol/L (98-108); Creatinine, Blood 1.12 mg/dL (0.60-1.20); Glomerular Filtration Rate >60 (60-); Glucose, Blood 163 mg/dL (70-99); Phosphorus, Blood 2.5 mg/dL (2.5-4.9); Potassium, Blood 4.7 mmol/L (3.5-5.5); Sodium, Blood 142 mmol/L (136-145)
--- NOTE | 2018-06-13 06:18 | NUR ---
SHIFT SUMMARY NO ACUTE CHANGES DURING NOC. SLEPT INTERMITTENTLY. CONTINUES TO BE CONFUSED. ANSWERS YES/NO QUESTIONS APPROPRIATELY. DENIES C/O PAIN WHEN ASKED. MINIMAL AND SLOW VERBAL RESPONSE. PT OCCASIONALLY PULLS OFF GOWN AND LEADS. VSS T/O NOC. O2 NOW @ 2LNC. RESPIRATIONS EVEN AND UNLABORED. OCCASIONAL MOIST NON-PRODUCTIVE COUGH. WILL ATTEMPT INCENTIVE SPIROMETRY NOW THAT PT IS MORE ALERT. ABD DRSG C/D/I. SRINATH DRAIN WITH 140CC SEROSANGUINOUS DRAINAGE. PAS AND CONY HOSE IN PLACE TO BLE. WILL REPORT TO DAY SHIFT RN WHEN AVAILABLE.
--- NOTE | 2018-06-13 07:11 | NUR ---
ASSUMED CARE: PT RESTING QUIETLY. ON 2L VIA NC. NO ACUTE NEEDS OR CONCERNS AT THIS TIME. NG OUT. WILL DISCUSS WITH MD. NIGHT RN STATES IT WAS NOT GETTING MUCH OUTPUT.
--- NOTE | 2018-06-13 07:53 | NUR ---
DR KIRK IN TO SEE PT. HE IS AWAKE, RESPONDS, ORIENTED TO SELF, STATES HE IS IN [place] IN THE HOSPITAL. FOLLOWS DIRECTIONS. DR KIRK AWARE THAT NG IS OUT. REQUESTS THAT THIS RN ASK DR GALE IF NG CAN STAY OUT, IF XARELTO CAN BE STARTED, AND IF PT CAN EAT. NO FURTHER CHANGES OR NEEDS. WATCHING TV AT THIS TIME
--- NOTE | 2018-06-13 08:31 | NUR ---
ATTEMPTED TO CALL DR GALE TO ASK QUESTIONS FOR ORDERS REGARDING THIS PT. IS IN OR, MESSAGE LEFT WITH NURSE FOR HIM TO CALL BACK
--- NOTE | 2018-06-13 08:47 | NUR ---
REPORT CALLED TO CATRACHO CARROLL. CATRACHO AWARE OF QUESTIONS FOR DR GALE ABOUT NG TUBE, XARELTO, AND IF PT COULD EAT OR DRINK. SPEECH EVAL PUT IN DUE TO PT'S HISTORY OF APHASIA. PT SITTING UPRIGHT IN BED. KEPPRA RUNNING. NO FURTHER NEEDS OR CONCERNS AT THIS TIME
--- NOTE | 2018-06-13 09:17 | NUR ---
PT TAKEN TO SURGICAL FLOOR VIA BED BY ROBYN
--- NOTE | 2018-06-13 09:51 | NUR ---
ARRIVAL TO UNIT PT ARRIVED TO UNIT AND TRANSFERRED INTO BED. BEDDING WAS SOILED UPON ARRIVAL AND LINENS CHANGED. ATTENDS IN PLACE AND DRY AT THIS TIME. PT ALERT AND ORIENTED, SLOW TO RESPOND WITH SLURRED SPEECH R/T TO HX OF STROKE. PT DENIES PAIN, N/V. DRESSINGS TO ABD ARE CDI. SRINATH EMPTIED AT THIS TIME. ICE CHIPS AND WATER GIVEN TO PT. IVF INFUSING PER ORDERS. ON 2L O2 VIA NC. CALL LIGHT WITHIN REACH. WILL CONT TO MONITOR.
--- NOTE | 2018-06-13 17:14 | NUR ---
SHIFT SUMMARY NO ACUTE CHANGES SINCE ARRIVAL TO UNIT. PT CONTINUES TO DENY PAIN, JOSELO CLEAR LIQ DIET, A+0. ATTENDS CHANGED PRN. IVF INFUSING PER ORDERS. SRINATH DRAIN EMPTIED PRN. LAP SITES TO ABD REMAIN CDI. CALL LIGHT WITHIN REACH. FAMILY IN INTERMITTENTLY T/O DAY.
--- NOTE | 2018-06-14 04:43 | NUR ---
PT IV SITE LEAKING, SERVERAL ATTEMPTS MADE FROM 2 RN'S AND ICU CHARGE ABLE TO START IV. 0000 UNASYN NOT ABLE TO BE STARTED TIL 0300. NEXT DOSE RETIMED FOR 1200.
--- NOTE | 2018-06-14 04:54 | NUR ---
SUMMARY: PT IS POD2 FOR LAP APPY. NO ACUTE CHANGE TONIGHT. VSS. PT WEAK (STROKE HX) AND NEEDS HELP TURNING, ATTEND CHANGES FREQUENTLY. PT HAS DENIED PAIN, HAD PROJECTILE VOMIT AT ABOUT 0345, MODERATE AMOUNT AND YOO IN COLOR, PT DENIED NAUSEA SOON AFTER. NO BM THIS SHIFT. SURGICAL SITES WNL. ABOUT 140ML DRAINED FROM SRINATH. NEW IV SITE INFUSING. NO ACUTE CONCERNS AT THIS TIME
[2018-06-14 06:02] LABS: BASOPHILS ABSOLUTE AUTO 0.03 K/mm3 (0.00-0.23); BASOPHILS PERCENT AUTO 0 % (0-2); EOSINOPHILS ABSOLUTE AUTO 0.05 K/mm3 (0.00-0.68); EOSINOPHILS PERCENT AUTO 0 % (0-6); Hematocrit 31.8 % (37.0-53.0); Hemoglobin 9.3 g/dL (13.5-17.5); IMMATURE GRAN PERCENT AUTO 1 % (0-1); LYMPHOCYTES ABSOLUTE AUTO 2.66 K/mm3 (0.84-5.20); LYMPHOCYTES PERCENT AUTO 20 % (21-46); MONOCYTES ABSOLUTE AUTO 0.92 K/mm3 (0.16-1.47); MONOCYTES PERCENT AUTO 7 % (4-13); Mean Corpuscular HGB 22.4 pg (26.0-34.0); Mean Corpuscular HGB Conc 29.2 g/dL (31.5-36.5); Mean Platelet Volume 8.6 fL (9.1-12.4); NEUTROPHILS ABSOLUTE AUTO 9.87 K/mm3 (1.96-9.15); NEUTROPHILS PERCENT AUTO 73 % (41-73); Platelet Count 289 K/mm3 (150-400); RDW Coefficient Variation 18.6 % (11.7-14.2); RDW Standard Deviation 51.5 fL (35.1-46.3); Red Blood Cell Count 4.15 M/mm3 (4.30-5.90); White Blood Cell Count 13.63 K/mm3 (4.00-11.30)
[2018-06-14 06:04] LABS: Mean Corpuscular Volume 77 fL (80-100)
[2018-06-14 06:23] LABS: Albumin, Blood 2.2 g/dL (3.4-5.0); Anion Gap 10 mmol/L (6-16); Blood Urea Nitrogen 15 mg/dL (8-24); Bun/Creatinine Ratio 13.3 (12.0-20.0); CO2, Blood 25 mmol/L (21-32); Calcium, Blood 7.7 mg/dL (8.5-10.1); Chloride, Blood 109 mmol/L (98-108); Creatinine, Blood 1.13 mg/dL (0.60-1.20); Glomerular Filtration Rate >60 (60-); Glucose, Blood 117 mg/dL (70-99); Phosphorus, Blood 1.7 mg/dL (2.5-4.9); Potassium, Blood 3.6 mmol/L (3.5-5.5); Sodium, Blood 144 mmol/L (136-145)
--- NOTE | 2018-06-14 17:38 | NUR ---
SUMMARY NO ACUTE CHANGES T/O SHIFT. PT SLEEPY T/O DAY. STOOD AT SIDE OF BED AND TRANSFERRED TO CHAIR W/2 PERSON MODERATE ASSIST. INCONTINENT OF URINE. POOR PO INTAKE DURING SHIFT. SWALLOWED PILL W/SIP OF WATER WITHOUT DIFFICULTY. DIFFICULT TO UNDERSTAND VERBALIZATION AT TIMES. PLEASANT AND COOPERATIVE.
[2018-06-15 04:13] LABS: BASOPHILS ABSOLUTE AUTO 0.03 K/mm3 (0.00-0.23); BASOPHILS PERCENT AUTO 0 % (0-2); EOSINOPHILS ABSOLUTE AUTO 0.28 K/mm3 (0.00-0.68); EOSINOPHILS PERCENT AUTO 4 % (0-6); Hematocrit 29.5 % (37.0-53.0); Hemoglobin 8.4 g/dL (13.5-17.5); IMMATURE GRAN ABSOLUTE AUTO 0.03 K/mm3 (0.00-0.10); IMMATURE GRAN PERCENT AUTO 0 % (0-1); LYMPHOCYTES ABSOLUTE AUTO 2.08 K/mm3 (0.84-5.20); LYMPHOCYTES PERCENT AUTO 26 % (21-46); MONOCYTES ABSOLUTE AUTO 0.51 K/mm3 (0.16-1.47); MONOCYTES PERCENT AUTO 6 % (4-13); Mean Corpuscular HGB 21.8 pg (26.0-34.0); Mean Corpuscular HGB Conc 28.5 g/dL (31.5-36.5); Mean Corpuscular Volume 77 fL (80-100); Mean Platelet Volume 8.4 fL (9.1-12.4); NEUTROPHILS ABSOLUTE AUTO 5.12 K/mm3 (1.96-9.15); NEUTROPHILS PERCENT AUTO 64 % (41-73); Platelet Count 297 K/mm3 (150-400); RDW Coefficient Variation 18.5 % (11.7-14.2); Red Blood Cell Count 3.85 M/mm3 (4.30-5.90); White Blood Cell Count 8.05 K/mm3 (4.00-11.30)
[2018-06-15 04:37] LABS: Albumin, Blood 2.2 g/dL (3.4-5.0); Anion Gap 8 mmol/L (6-16); Blood Urea Nitrogen 13 mg/dL (8-24); Bun/Creatinine Ratio 11.7 (12.0-20.0); CO2, Blood 27 mmol/L (21-32); Calcium, Blood 7.6 mg/dL (8.5-10.1); Chloride, Blood 108 mmol/L (98-108); Creatinine, Blood 1.11 mg/dL (0.60-1.20); Glomerular Filtration Rate >60 (60-); Glucose, Blood 114 mg/dL (70-99); Phosphorus, Blood 2.1 mg/dL (2.5-4.9); Potassium, Blood 3.3 mmol/L (3.5-5.5); Sodium, Blood 143 mmol/L (136-145)
--- NOTE | 2018-06-15 06:20 | NUR ---
SUMMARY PT SLEPT OFF AND ON TONIGHT. MINIMAL INTERACTION WITH STAFF VERBALLY. ANSWERS WITH SIMPLE WORDS AND FEW STATEMENT.IS ABLE TO ASSIST SOME WITH REPOSITIONING IN BE. PT HAS HX CVA WITH RESULTANT APHASIA AND L SIDE WEAKER THAN R. PT DID HOWEVER AT ONE POINT SEPERATE HIS SRINATH FROM HIS TUBE CAUSING IT TO SPLASH AND WHEN HE WAS ASKED WHY? SAID BECAUSE HE WANTS TO GO HOME.I DISCUSSED RISKS AND NOT SAFE/APPROPRIATE TO DO SO AND WILL NOT CHANGE WHEN HE WILL BE ABLE TO GO HOME. I ADVISED HE SPEAK WITH HIS DR REGARDING THIS IN AM.BED ALARM REMAINS ON. PT WITH NO FURTHER ISSUES REGARDING SRINATH.
--- NOTE | 2018-06-15 18:02 | NUR ---
SUMMARY ASSUMED CARE OF PT THIS AFTERNOON, 2 PERSON MAX ASSIST BACK TO BED, DOESN'T FOLLOW DIRECTIONS, PT EVAL ORDERED BY DR. KIRK, HAVE NOT BEEN ABLE TO REACH TO NOTIFY HER PT IS NOT GOING HOME TODAY SHE WAS TOLD EARLIER, MESSAGE LEFT AND MULTIPLE CALLS ATTEMPTED.
[2018-06-16 05:33] LABS: BASOPHILS ABSOLUTE AUTO 0.03 K/mm3 (0.00-0.23); BASOPHILS PERCENT AUTO 0 % (0-2); EOSINOPHILS ABSOLUTE AUTO 0.36 K/mm3 (0.00-0.68); EOSINOPHILS PERCENT AUTO 4 % (0-6); Hematocrit 29.4 % (37.0-53.0); Hemoglobin 8.5 g/dL (13.5-17.5); IMMATURE GRAN ABSOLUTE AUTO 0.07 K/mm3 (0.00-0.10); IMMATURE GRAN PERCENT AUTO 1 % (0-1); LYMPHOCYTES ABSOLUTE AUTO 2.12 K/mm3 (0.84-5.20); LYMPHOCYTES PERCENT AUTO 26 % (21-46); MONOCYTES ABSOLUTE AUTO 0.44 K/mm3 (0.16-1.47); MONOCYTES PERCENT AUTO 5 % (4-13); Mean Corpuscular HGB 21.7 pg (26.0-34.0); Mean Corpuscular HGB Conc 28.9 g/dL (31.5-36.5); Mean Corpuscular Volume 75 fL (80-100); Mean Platelet Volume 8.5 fL (9.1-12.4); NEUTROPHILS ABSOLUTE AUTO 5.19 K/mm3 (1.96-9.15); NEUTROPHILS PERCENT AUTO 63 % (41-73); Platelet Count 290 K/mm3 (150-400); RDW Coefficient Variation 18.6 % (11.7-14.2); RDW Standard Deviation 50.6 fL (35.1-46.3); Red Blood Cell Count 3.91 M/mm3 (4.30-5.90); White Blood Cell Count 8.21 K/mm3 (4.00-11.30)
[2018-06-16 05:53] LABS: Albumin, Blood 2.2 g/dL (3.4-5.0); Anion Gap 7 mmol/L (6-16); Blood Urea Nitrogen 12 mg/dL (8-24); Bun/Creatinine Ratio 9.9 (12.0-20.0); CO2, Blood 27 mmol/L (21-32); Calcium, Blood 7.7 mg/dL (8.5-10.1); Chloride, Blood 109 mmol/L (98-108); Creatinine, Blood 1.21 mg/dL (0.60-1.20); Glomerular Filtration Rate >60 (60-); Glucose, Blood 113 mg/dL (70-99); Phosphorus, Blood 2.7 mg/dL (2.5-4.9); Potassium, Blood 3.3 mmol/L (3.5-5.5); Sodium, Blood 143 mmol/L (136-145)
--- NOTE | 2018-06-16 07:35 | NUR ---
POD 4 S/P LAP APPY. PT VSS T/O NIGHT; DRESSINGS CDI. PT DENIED PAIN/N/V. PO INTAKE MINIMAL, FLUIDS ENC W/ROUNDING. PT INCONTINENT OF URINE, ATTENDS CHANGED PRN. CALL LIGHT IN REACH, BED ALARM ON. REP GIVEN TO DAY RN.
--- NOTE | 2018-06-16 16:57 | NUR ---
SHIFT SUMMARY PT HAS DONE WELL THIS SHIFT, DENIES PAIN. UP WITH PT/OT THIS SHIFT-TOLERATED WELL BUT STILL WEAK-DECLINED GETTING UP TO CHAIR. IVF DISCONTINUED. PLAN IS TO DC TO SNF ONCE BED AVAILABLE
[2018-06-17 05:42] LABS: BASOPHILS ABSOLUTE AUTO 0.03 K/mm3 (0.00-0.23); BASOPHILS PERCENT AUTO 0 % (0-2); EOSINOPHILS ABSOLUTE AUTO 0.21 K/mm3 (0.00-0.68); EOSINOPHILS PERCENT AUTO 2 % (0-6); Hematocrit 29.1 % (37.0-53.0); Hemoglobin 8.5 g/dL (13.5-17.5); IMMATURE GRAN ABSOLUTE AUTO 0.06 K/mm3 (0.00-0.10); IMMATURE GRAN PERCENT AUTO 1 % (0-1); LYMPHOCYTES ABSOLUTE AUTO 1.97 K/mm3 (0.84-5.20); LYMPHOCYTES PERCENT AUTO 23 % (21-46); MONOCYTES ABSOLUTE AUTO 0.37 K/mm3 (0.16-1.47); MONOCYTES PERCENT AUTO 4 % (4-13); Mean Corpuscular HGB 21.9 pg (26.0-34.0); Mean Corpuscular HGB Conc 29.2 g/dL (31.5-36.5); Mean Corpuscular Volume 75 fL (80-100); Mean Platelet Volume 8.3 fL (9.1-12.4); NEUTROPHILS ABSOLUTE AUTO 6.06 K/mm3 (1.96-9.15); NEUTROPHILS PERCENT AUTO 70 % (41-73); Platelet Count 324 K/mm3 (150-400); RDW Coefficient Variation 18.6 % (11.7-14.2); RDW Standard Deviation 50.7 fL (35.1-46.3); Red Blood Cell Count 3.88 M/mm3 (4.30-5.90)
[2018-06-17 06:09] LABS: Albumin, Blood 2.4 g/dL (3.4-5.0); Anion Gap 9 mmol/L (6-16); Blood Urea Nitrogen 11 mg/dL (8-24); Bun/Creatinine Ratio 8.9 (12.0-20.0); CO2, Blood 26 mmol/L (21-32); Calcium, Blood 7.8 mg/dL (8.5-10.1); Chloride, Blood 107 mmol/L (98-108); Creatinine, Blood 1.23 mg/dL (0.60-1.20); Glomerular Filtration Rate >60 (60-); Glucose, Blood 124 mg/dL (70-99); Phosphorus, Blood 2.9 mg/dL (2.5-4.9); Potassium, Blood 3.5 mmol/L (3.5-5.5); Sodium, Blood 142 mmol/L (136-145)
--- NOTE | 2018-06-17 07:53 | NUR ---
SUMMARY: POD [address] GALE. VSS, AFEBRILE, TOLERATING PO INTAKE WELL AND HAD LARGE BM THIS SHIFT WITH HEAVY VOIDS. CONTINUE PT/OT WHILE AWAITING SNF BED AVAILABILITY. DENIES PAIN, N/V AND MOVES WELL IN BED WITH MINIMAL ASSIST.
--- NOTE | 2018-06-17 17:03 | NUR ---
SHIFT SUMMARY PT HAS DONE WELL THIS SHIFT. DENIES PAIN, UP TO CHAIR ALL SHIFT. 2 PERSON ASSIST FOR ALL TRANSFERS. PLAN IS TO DC HOME TOMORROW WITH HOME HEALTH SINCE REFUSED SNF.
--- NOTE | 2018-06-18 04:41 | NUR ---
SUMMARY: POD [address] GALE. VSS, AFEBRILE, ROOM AIR WITH GOOD TCDB EFFORT AND IS USE. DENIES PAIN, N/V AND IS TOLERATING REGULAR SOFT DIET. CONTINUES HEAVY INCONTINENT VOIDS. PT APPEARS MORE ALERT AND VOCALIZES WISHES WITH STAFF. PLAN TO DC HOME HE SHARES WITH WITH HOME HEALTH THIS DAY.
--- NOTE | 2018-06-18 07:00 | NUR ---
recvd bedside report from previous shift rn summer, pt sleeping in bed, bed in lowest position, call light within reach, bed rails up x 2
--- NOTE | 2018-06-18 10:14 | NUR ---
pt sitting up in chair, provided morning care, tolerating diet and morning medications
--- NOTE | 2018-06-18 10:40 | NUR ---
supercharger mechanicjose cruz jin called pt's to request she be present for discharge teaching done by PT. Pt's states she will be coming to the hospital in "a little while"
--- NOTE | 2018-06-18 10:50 | NUR ---
dr pittman roundaaron on pt, pt states he is passing flatus
[2018-06-18] MEDS ORDERED: Augmentin 875-1 EACH PO (10:55)
[2018-06-18] MEDS ORDERED: POTCHL10ER PO (10:56)
--- NOTE | 2018-06-18 14:50 | NUR ---
PT Zuleima checked in to see if pt's has arrived yet for discharge teaching. This RN called pt's , no answer.
--- NOTE | 2018-06-18 14:58 | NUR ---
pt sitting up in chair. on questioning, pt slow to answer and uses one word or shakes/nod head.
--- NOTE | 2018-06-18 17:05 | NUR ---
international manager Traci contacted pt's to ascertain if she is still planning on taking pt home today. Pt's states she is planning on taking pt home. Traci ascertained the 's understanding of pt's care needs, that he is a 2 person transfer and will require physical therapy. pt's states this understanding, and stated to Traci that she has a caregiver for the pt. pt's states she will be arriving at the hospital this evening. Dr Luevano has been notifed of pt's status, will notify her again at 1830 of whether or not pt has left the hospital yet.
--- NOTE | 2018-06-18 17:29 | NUR ---
shift summary: pt remained a/0, vss, slow to respond and uses one work responses per baseline. pt up in chair from breakfast to dinner, stood x 2 with two person assist, fww and gait belt. tolerated po intake with no n/v. incontinent urine output of 3 heavily wet attends and insert. pt is planning discharge, states she is planning to pick him up this evening. discharge paperwork complete. see note of [id number] for adult daycare coordinator/PT involvement.
--- NOTE | 2018-06-18 18:25 | NUR ---
pt's and friends arrived to transport pt home. discharge instructions provided, printed materials given. pt transferred to wheelchair with gait belt and fww with two nursing staff. pt transferred to awaiting vehicle via wheelchair and two nursing staff. pt's belongings transferred to vehicle by family friend. pt's reports they have a mine production engineer to assist them until home health comes. pt wore gait belt home for better assistance. dr alvarez notified pt discharged.
== END 2018-06-18 19:35 | disposition home health service (06) | DRG 341 ==
LOC: ER 14:16 → MEDS 17:57 → SURS 17:57 → ICUE 06-12 17:01 → SURS 06-13 09:04
PROVIDERS: Family Medicine; Surgery; ADMIT Internal Medicine
PROC: 0DTJ4ZZ Resection of Appendix, Percutaneous Endoscopic Approach (ICD-10-PCS; principal; 2018-06-12 13:30)
DX: K35.80 Unspecified acute appendicitis (principal); N17.0 Acute kidney failure with tubular necrosis; J96.01 Acute respiratory failure with hypoxia; J98.11 Atelectasis; E87.2 Acidosis; E87.1 Hypo-osmolality and hyponatremia; E83.39 Other disorders of phosphorus metabolism; E87.6 Hypokalemia; K21.9 Gastro-esophageal reflux disease without esophagitis; I12.9 Hypertensive chronic kidney disease with stage 1 through stage 4 chronic kidney disease, or unspecified chronic kidney disease; N18.3 Chronic kidney disease, stage 3 (moderate); Z74.09 Other reduced mobility; F03.90 Unspecified dementia, unspecified severity, without behavioral disturbance, psychotic disturbance, mood disturbance, and anxiety; D63.1 Anemia in chronic kidney disease; G40.909 Epilepsy, unspecified, not intractable, without status epilepticus; N40.1 Benign prostatic hyperplasia with lower urinary tract symptoms; G89.4 Chronic pain syndrome; E83.51 Hypocalcemia; R33.8 Other retention of urine; I69.920 Aphasia following unspecified cerebrovascular disease; Z86.718 Personal history of other venous thrombosis and embolism; Z79.01 Long term (current) use of anticoagulants; Z79.82 Long term (current) use of aspirin; Z79.899 Other long term (current) drug therapy
CPT/HCPCS: 36415; 71046; 80053; 80069; 83605; 85025; 87040; 88304; 92523; 96365; 97110; 97162; 97167; 97530; 97535; 99285-25; C9113; J0295; J1100; J1885; J1940; J1953; J2370; J2405; J3010; J7030; J7060; J7120

== ENCOUNTER 2018-07-27 08:34 | Emergency (ER) | payer MEDICARE ==
[~2018-07-27] VITALS: Ht 182.9 cm; Wt 127.0 kg
[~2018-07-27 08:34] MED LIST changes: -ASCO500 PO; -Aspir 8181 MG PO; +Augmentin 875-1 EACH PO; +HYDR1TAB94 PO; -LEVE500 PO; -OMEPRAZOLE MAGN20 MG PO; -XARELTO20 MG PO
[2018-07-27 09:32] LABS: BASOPHILS ABSOLUTE AUTO 0.03 K/mm3 (0.00-0.23); BASOPHILS PERCENT AUTO 0 % (0-2); EOSINOPHILS ABSOLUTE AUTO 0.01 K/mm3 (0.00-0.68); EOSINOPHILS PERCENT AUTO 0 % (0-6); Hematocrit 32.4 % (37.0-53.0); Hemoglobin 9.4 g/dL (13.5-17.5); IMMATURE GRAN ABSOLUTE AUTO 0.09 K/mm3 (0.00-0.10); IMMATURE GRAN PERCENT AUTO 1 % (0-1); LYMPHOCYTES ABSOLUTE AUTO 0.88 K/mm3 (0.84-5.20); LYMPHOCYTES PERCENT AUTO 7 % (21-46); MONOCYTES ABSOLUTE AUTO 0.49 K/mm3 (0.16-1.47); MONOCYTES PERCENT AUTO 4 % (4-13); Mean Corpuscular HGB 22.1 pg (26.0-34.0); Mean Corpuscular Volume 76 fL (80-100); Mean Platelet Volume 8.4 fL (9.1-12.4); NEUTROPHILS ABSOLUTE AUTO 11.38 K/mm3 (1.96-9.15); NEUTROPHILS PERCENT AUTO 88 % (41-73); Platelet Count 325 K/mm3 (150-400); RDW Coefficient Variation 18.3 % (11.7-14.2); RDW Standard Deviation 49.9 fL (35.1-46.3); Red Blood Cell Count 4.26 M/mm3 (4.30-5.90); White Blood Cell Count 12.88 K/mm3 (4.00-11.30)
[2018-07-27 09:48] LABS: Alanine Aminotransfer (ALT/SGP 19 U/L (12-78); Albumin, Blood 3.1 g/dL (3.4-5.0); Albumin/Globulin Ratio 0.7 (0.8-1.8); Alk Phos 144 U/L (50-136); Anion Gap 11 mmol/L (6-16); Aspartate Aminotrans (AST/SGOT 14 U/L (12-37); Bilirubin, Total 0.2 mg/dL (0.1-1.0); Blood Urea Nitrogen 10 mg/dL (8-24); Bun/Creatinine Ratio 8.5 (12.0-20.0); CO2, Blood 22 mmol/L (21-32); Calcium, Blood 8.4 mg/dL (8.5-10.1); Chloride, Blood 106 mmol/L (98-108); Creatinine, Blood 1.18 mg/dL (0.60-1.20); Globulin, Blood 4.4 g/dL (2.2-4.0); Glomerular Filtration Rate >60 (60-); Glucose, Blood 147 mg/dL (70-99); Potassium, Blood 3.5 mmol/L (3.5-5.5); Sodium, Blood 139 mmol/L (136-145); Total Protein, Blood 7.5 g/dL (6.4-8.2)
[2018-07-27 13:05] LABS: Influenza A Negative (NEGATIVE); Influenza B Negative (NEGATIVE)
[2018-07-27] MEDS ORDERED: ONDA4ODT MM (13:36)
[2018-07-27] MEDS ORDERED: Zithromax250 MG PO (13:36)
== END 2018-07-27 14:58 | disposition home or self-care (01) ==
LOC: ER 08:34
PROVIDERS: Emergency Medicine
DX: G40.909 Epilepsy, unspecified, not intractable, without status epilepticus (principal); J18.9 Pneumonia, unspecified organism; R11.10 Vomiting, unspecified; I10 Essential (primary) hypertension; D64.9 Anemia, unspecified
CPT/HCPCS: 36415; 71045; 80053; 85025; 87804; 93005; 93010; 96374; 99284-25; J2405

== ENCOUNTER 2018-07-29 10:47 | Inpatient (IN) | payer MEDICARE ==
[~2018-07-29] VITALS: Ht 190.5 cm; Wt 100.3 kg
[~2018-07-29 10:47] MED LIST changes: +ONDA4ODT MM; +Zithromax250 MG PO
[2018-07-29 11:34] LABS: BASOPHILS ABSOLUTE AUTO 0.07 K/mm3 (0.00-0.23); BASOPHILS PERCENT AUTO 0 % (0-2); EOSINOPHILS ABSOLUTE AUTO 0.02 K/mm3 (0.00-0.68); EOSINOPHILS PERCENT AUTO 0 % (0-6); Hematocrit 32.7 % (37.0-53.0); Hemoglobin 9.4 g/dL (13.5-17.5); IMMATURE GRAN PERCENT AUTO 1 % (0-1); LYMPHOCYTES ABSOLUTE AUTO 3.27 K/mm3 (0.84-5.20); LYMPHOCYTES PERCENT AUTO 17 % (21-46); MONOCYTES ABSOLUTE AUTO 1.27 K/mm3 (0.16-1.47); MONOCYTES PERCENT AUTO 6 % (4-13); Mean Corpuscular HGB 22.8 pg (26.0-34.0); Mean Corpuscular HGB Conc 28.7 g/dL (31.5-36.5); Mean Platelet Volume 8.8 fL (9.1-12.4); NEUTROPHILS ABSOLUTE AUTO 14.97 K/mm3 (1.96-9.15); NEUTROPHILS PERCENT AUTO 76 % (41-73); Platelet Count 425 K/mm3 (150-400); RDW Coefficient Variation 18.5 % (11.7-14.2); RDW Standard Deviation 53.2 fL (35.1-46.3); Red Blood Cell Count 4.13 M/mm3 (4.30-5.90)
[2018-07-29 11:45] LABS: Mean Corpuscular Volume 79 fL (80-100)
[2018-07-29 11:51] LABS: Alanine Aminotransfer (ALT/SGP 26 U/L (12-78); Albumin, Blood 3.2 g/dL (3.4-5.0); Albumin/Globulin Ratio 0.7 (0.8-1.8); Alk Phos 133 U/L (50-136); Anion Gap 12 mmol/L (6-16); Aspartate Aminotrans (AST/SGOT 42 U/L (12-37); Bilirubin, Total 0.6 mg/dL (0.1-1.0); Blood Urea Nitrogen 20 mg/dL (8-24); Bun/Creatinine Ratio 13.1 (12.0-20.0); CO2, Blood 23 mmol/L (21-32); Calcium, Blood 8.7 mg/dL (8.5-10.1); Chloride, Blood 106 mmol/L (98-108); Creatine Kinase MB 4.9 ng/mL (0.0-3.6); Creatinine, Blood 1.53 mg/dL (0.60-1.20); Globulin, Blood 4.4 g/dL (2.2-4.0); Glomerular Filtration Rate 47 (60-); Glucose, Blood 207 mg/dL (70-99); Potassium, Blood 3.8 mmol/L (3.5-5.5); Sodium, Blood 141 mmol/L (136-145); Total Protein, Blood 7.6 g/dL (6.4-8.2); Troponin I <0.015 ng/mL (0.000-0.040)
[2018-07-29 11:57] LABS: International Normalized Ratio 1.08; Prothrombin Time Results 11.4 Sec (9.7-11.5)
[2018-07-29 12:03] LABS: CPK Creatine Kinase 1248 U/L (39-308); Creatine Kinase MB Index 0.4 (0.0-4.0)
[2018-07-29] MEDS ORDERED: ACET325 PO (14:17)
[2018-07-29] MEDS ORDERED: CHOL10002 PO (14:18)
[2018-07-29] MEDS ORDERED: FINA5 PO (14:19)
[2018-07-29] MEDS ORDERED: Norco 10-325 T1 EACH PO (14:22)
[2018-07-29] MEDS ORDERED: LEVE500 PO (14:23)
[2018-07-29] MEDS ORDERED: OMEPRAZOLE MAGN20 MG PO (14:24)
[2018-07-29] MEDS ORDERED: XARELTO20 MG PO (14:26)
[2018-07-29] MEDS ORDERED: [UNRECOGNIZED DRUG - MIXTURE] TOP (14:28)
[2018-07-29] MEDS ORDERED: Aspir 8181 MG PO (14:49)
[2018-07-29] MEDS ORDERED: ASCO500 PO (14:55)
[2018-07-29] MEDS ORDERED: POTCHL10ER PO (14:56)
[2018-07-29] MEDS ORDERED: FURO20 PO (15:02)
[2018-07-29 16:46] LABS: Hematocrit 30.3 % (37.0-53.0); Hemoglobin 8.8 g/dL (13.5-17.5)
[2018-07-29 17:34] LABS: Troponin I <0.015 ng/mL (0.000-0.040)
--- NOTE | 2018-07-29 17:56 | NUR ---
pt arrived to pcu 8 via gurney was moved to bed, he barely woke and moaned durring movement, very lethargic, lungs are clear in upper tay, dim in bases, but pt is not able to assit with assessment, hrr, tele in place running st per monitor, see strip, no edmea noted, ppp+1, cap refill <3sec, vs stable, afebrile, iv sites x2, clear and patent, btx4, abd flat soft does not appear to be tender, incont of urine, skin c/w/d, call light in reach.
[2018-07-29 17:59] LABS: CPK Creatine Kinase 1263 U/L (39-308)
[2018-07-29 19:09] LABS: Creatine Kinase MB 4.9 ng/mL (0.0-3.6); Creatine Kinase MB Index 0.4 (0.0-4.0)
--- NOTE | 2018-07-29 22:12 | NUR ---
SUICIDE SCREENING PATIENT IS ABLE TO ANSWER QUESTIONS, SOMEWHAT. HE DENIES SUICIDAL IDEATION OR THOUGHTS. HE IS OBSERVED TO BE SOMEWHAT CONFUSED AND SLOW TO RESPOND AT THIS TIME. PT ADMITTED FOR, AND EXHIBITING SIGNS OF ALTERED MENTAL STATUS. PT WILL CONTINUE TO BE MONITORED.
[2018-07-29 23:25] LABS: Hematocrit 22.1 % (37.0-53.0); Hemoglobin 6.6 g/dL (13.5-17.5)
[2018-07-29 23:48] LABS: Troponin I <0.015 ng/mL (0.000-0.040)
[2018-07-29 23:56] LABS: CPK Creatine Kinase 1022 U/L (39-308)
[2018-07-30 00:12] LABS: Creatine Kinase MB 3.5 ng/mL (0.0-3.6); Creatine Kinase MB Index 0.3 (0.0-4.0)
[2018-07-30 06:02] LABS: BASOPHILS ABSOLUTE AUTO 0.06 K/mm3 (0.00-0.23); BASOPHILS PERCENT AUTO 1 % (0-2); EOSINOPHILS ABSOLUTE AUTO 0.25 K/mm3 (0.00-0.68); EOSINOPHILS PERCENT AUTO 2 % (0-6); Hematocrit 23.6 % (37.0-53.0); Hemoglobin 6.9 g/dL (13.5-17.5); IMMATURE GRAN ABSOLUTE AUTO 0.05 K/mm3 (0.00-0.10); IMMATURE GRAN PERCENT AUTO 0 % (0-1); LYMPHOCYTES ABSOLUTE AUTO 2.98 K/mm3 (0.84-5.20); LYMPHOCYTES PERCENT AUTO 27 % (21-46); MONOCYTES ABSOLUTE AUTO 0.62 K/mm3 (0.16-1.47); MONOCYTES PERCENT AUTO 6 % (4-13); Mean Corpuscular HGB 22.8 pg (26.0-34.0); Mean Corpuscular HGB Conc 29.2 g/dL (31.5-36.5); Mean Corpuscular Volume 78 fL (80-100); Mean Platelet Volume 9.1 fL (9.1-12.4); NEUTROPHILS ABSOLUTE AUTO 7.24 K/mm3 (1.96-9.15); NEUTROPHILS PERCENT AUTO 65 % (41-73); Platelet Count 246 K/mm3 (150-400); RDW Coefficient Variation 18.6 % (11.7-14.2); RDW Standard Deviation 53.1 fL (35.1-46.3); Red Blood Cell Count 3.02 M/mm3 (4.30-5.90)
[2018-07-30 06:20] LABS: Albumin, Blood 2.3 g/dL (3.4-5.0); Albumin/Globulin Ratio 0.8 (0.8-1.8); Bilirubin, Total 1.1 mg/dL (0.1-1.0); Bun/Creatinine Ratio 20.1 (12.0-20.0); Calcium, Blood 7.4 mg/dL (8.5-10.1); Creatinine, Blood 1.39 mg/dL (0.60-1.20); Potassium, Blood 3.6 mmol/L (3.5-5.5)
[2018-07-30 06:21] LABS: Total Protein, Blood 5.3 g/dL (6.4-8.2)
--- NOTE | 2018-07-30 06:47 | NUR ---
SHIFT SUMMARY PT NOT COMPLETELY RESPONSIVE AT SHIFT ONSET. HE DID NOT RESPOND TO STAFF VERBALLY, BUT WAS ABLE TO OPEN EYES AND TRACK STAFF. PT IMROVED T/O THE SHIFT. HE HAS BEEN ABLE TO ANSWER SOME QUESTIONS, HE SPEAKS IN SHORT SENTANCES, THOUGH IS HARD TO UNDERSTAND AT TIMES. PT SLEPT OFF AND ON DURING THE NIGHT. HE DID HAVE SOME DECREASE IN HGB DURING THE NIGHT AND AN ORDER WAS OBTAINED FROM THE DOCTOR TO ADMINISTER A UNIT OF PRBCS. PT TOLERATED THIS WELL. HE CONTINUES TO BE INCREASINGLY ALERT THE SHIFT PROGRESSES. PT WAS ABLE TO USE HIS CALL LIGHT THIS AM. HE HAS REMAINED ON BEDREST AND CONTINUES TO RECIEVE HIS IV FLUIDS. HE HAS 2X SIDE RAILS IN PLACE, BED IN LOWEST POSITION AND CALL LIGHT IN REACH. BED ALARM IS ACTIVE FOR SAFETY, ALTHOUGH PATIENT HAS NOT BEEN IMPULSIVE. PT DENIED ANY UNMET NEEDS, BUT DID SAY THAT HE WAS NOT DOING GOOD BECAUSE THERE WAS NOOONE TO TALK TO IN HIS ROOM. HE HAD ON LARGE LIQUID BOWEL MOVEMENT AND CONTINUES TO BE INCONTINENT OF BOWEL AND BLADDER. HE HAD NO ACUTE CHANGES TO VITALS OR LOC, THOUGH HIS PRESSURE DID MAINTAIN 100'S SYSTOLICALLY. BHE WILL CONTINUE TO BE MONITORED UNTIL HANDOFF TO DAYSHIFT RN.
--- NOTE | 2018-07-30 14:41 | NUR ---
PATIENT GAVE SNEBARRY PERMISSION TO HELP PROVIDE CARE ON 07/31/18.
--- NOTE | 2018-07-30 18:25 | NUR ---
SHIFT SUMMARY PT RESPONDS TO VERBAL STIMULI. PT ABLE TO SAY YES OR NO, BUT SPEECH IS GARBLED AND DIFFICULT TO UNDERSTAND. VITAL SIGNS HAVE BEEN STABLE. PT RECEIVED 1U PRBC THIS SHIFT. NG TUBE IN PLACE TO LOW INTERMITTENT SUCTION. PT HAS HAD MULTIPLE INCONTINENT VOIDS AND TWO INCONTINENT BM THIS SHIFT. ATTENDS ARE DRY AT THIS TIME. PT HAS BEEN REPOSITIONED Q2H. NS INFUSING PER ORDERS. PROTONIX INFUSING PER ORDERS. NO OTHER CHANGES THIS SHIFT. WILL CONTINUE TO MONITOR AND REPORT TO ONCOMING RN.
--- NOTE | 2018-07-30 19:40 | NUR ---
PM NOTE. ASSUMED CARE OF PT APROX 1900, PT IS A&O TO HIMSELF, PLACE AND SITUATION, PT IS ABLE TO ANSWER YES OR NO QUESTIONS AND MAKE HIS NEEDS KNOWN AND USES THE CALL LIGHT APPROPRIATELY. PT WAS ADMITTED DUE TO AMS, NG TUBE WAS PLACED DUE TO COFFEE GROUND EMESIS. PT HAS BEEN NPO FOR SUSPECTED SBO/GI BLEED. TELE INTACT, SR W/PVCS IN THE 70'S PER SHORT PIECE HANDLER, PT'S BP 102/57, 1+ EDEMA NOTED TO THE PT'S BLE. PT'S L/S CLEAR T/O AND DIM IN THE BASES, PT'S O2 STATS ARE CURRENTLY >92% ON RA. BT PRESENT AND HYPOACTIVE, ABD IS SOFT AND NONTENDER TO PALP. PT IS INCONT OF URINE AND BOWEL, ATTENDS ARE C/D/I. CALL LIGHT IN REACH, BED IS LOCKED AND LOW WILL CONTINUE TO MONITOR.
--- NOTE | 2018-07-31 00:13 | NUR ---
PT UPDATE.... AT 2300, ORDRES WERE OBTAINED TO REMOVED THE NG TUBE, PT WAS INFORMED AND PREPPED FOR REMOVAL. NG WAS REMOVED WNL, PT TOLERATED THE PROCEDURE WELL. CALL LIGHT IN REACH, BED IS LOCKED AND LOW WILL BED ALARM ON. WILL CONTINUE TO MONITOR.
[2018-07-31 01:22] LABS: BASOPHILS ABSOLUTE AUTO 0.04 K/mm3 (0.00-0.23); BASOPHILS PERCENT AUTO 1 % (0-2); EOSINOPHILS ABSOLUTE AUTO 0.35 K/mm3 (0.00-0.68); EOSINOPHILS PERCENT AUTO 4 % (0-6); Hematocrit 24.4 % (37.0-53.0); Hemoglobin 7.1 g/dL (13.5-17.5); IMMATURE GRAN ABSOLUTE AUTO 0.05 K/mm3 (0.00-0.10); IMMATURE GRAN PERCENT AUTO 1 % (0-1); LYMPHOCYTES ABSOLUTE AUTO 2.72 K/mm3 (0.84-5.20); LYMPHOCYTES PERCENT AUTO 34 % (21-46); MONOCYTES ABSOLUTE AUTO 0.49 K/mm3 (0.16-1.47); MONOCYTES PERCENT AUTO 6 % (4-13); Mean Corpuscular HGB 23.2 pg (26.0-34.0); Mean Corpuscular HGB Conc 29.1 g/dL (31.5-36.5); Mean Corpuscular Volume 80 fL (80-100); Mean Platelet Volume 8.8 fL (9.1-12.4); NEUTROPHILS ABSOLUTE AUTO 4.27 K/mm3 (1.96-9.15); NEUTROPHILS PERCENT AUTO 54 % (41-73); Platelet Count 199 K/mm3 (150-400); RDW Coefficient Variation 18.5 % (11.7-14.2); Red Blood Cell Count 3.06 M/mm3 (4.30-5.90); White Blood Cell Count 7.92 K/mm3 (4.00-11.30)
[2018-07-31 01:38] LABS: Anion Gap 10 mmol/L (6-16); Blood Urea Nitrogen 17 mg/dL (8-24); Bun/Creatinine Ratio 14.2 (12.0-20.0); CO2, Blood 23 mmol/L (21-32); Calcium, Blood 7.2 mg/dL (8.5-10.1); Chloride, Blood 117 mmol/L (98-108); Glomerular Filtration Rate >60 (60-); Glucose, Blood 99 mg/dL (70-99); Potassium, Blood 3.5 mmol/L (3.5-5.5); Sodium, Blood 150 mmol/L (136-145)
--- NOTE | 2018-07-31 05:51 | NUR ---
SHIFT SUMMARY. NO ACUTE CHANGES NOTED THIS SHIFT. NG TUBE WAS D/C'D AND PT HAS TOLERATED THIS WELL. PT DENIES ANY STOMACH PAIN/ACHE, BLOATING. NO DISTENTION IS NOTED. PT HAS NOT HAD A BM THIS SHIFT. PT HAS BEEN TURNED Q2 HOURS AND ATTENDS CHANGED PRN. ATTENDS ARE CURRENTLY C/D/I. PT HAS NS RUNNING AT 125MLS/HR. PT'S VS HAVE BEEN STABLE. PT DENIES ANY CHEST PAIN/PRESSURE, N/V OR SOB. CALL LIGHT IN REACH, BED IS LOCKED AND LOW WILL CONTINUE TO MONITOR UNTIL REPORT IS GIVEN TO ONCOMING RN.
--- NOTE | 2018-07-31 13:53 | NUR ---
Spiritual care visit conducted. Patient was sitting up in bed and alert. I introduced myself and patient welcomed me in with a hand shake. Communication with patient was a bit difficult but his face did light up when I asked if they call him "Magic." Patient also said "yes" and nodded affirmingly when I asked if I could pray for him. I provided companionship and prayer. Patient thanked me.
--- NOTE | 2018-07-31 18:31 | NUR ---
SHIFT SUMMARY PT ALERT AND ORIENTED TO SELF AND SITUATION. VS HAVE BEEN STABLE. PT ABLE TO TOLERATE CLEAR LIQUIDS TODAY. PT DENIES ANY PAIN AND NAUSEA. PT REPOSITIONED Q2H. ORAL CARE PROVIDED. WILL CONTINUE TO MONITOR AND REPORT TO ONCOMING RN. CALL LIGHT IN REACH.
--- NOTE | 2018-07-31 19:54 | NUR ---
PM NOTE. ASSUMED CARE OF PT APROX 1900, PT IS A&O AND ABLE TO ANSWER YES OR NO QUESTIONS. PT WAS ADMITTED DUE TO POSSIBLE PNA, SBO AND GI, PT HAS NOT HAD ANY N/V AND HAD A SMALL BROWN FORMED BM AT 1930. PT IS CURRENTLY ON RA W/STATS IN THE HIGH 90'S, PT'S L/S CLEAR T/O AND DIM IN THE BASES. TELE INTACT, NSR W/PVCS IN THE 70'S PER SQL APPLICATION DEVELOPER, PT'S BP 105/56. TRACE EDEMA NOTED ON ASSESSMENT. L/S CLEAR T/O DIM IN THE BASES AND ON RA. BT PRESENT AND HYPERACTIVE, ABD IS SOFT AND NONTENDER TO PALP. CALL LIGHT IN REACH, BED IS LOCKED AND LOW WILL CONTINUE TO MONITOR.
--- NOTE | 2018-08-01 06:06 | NUR ---
SHIFT SUMMARY. NO ACUTE CHANGES NOTED THIS SHIFT. PT VS HAVE BEEN STABLE. PT DENIES ANY CHEST PAIN/PRESSURE, N/V OR SOB. PT COMPLAINED OF PAIN ONCE THIS SHIFT AND WAS MEDICATED PER EMAR W/GOOD RESULTS. PT HAS BEEN TURNED Q2 HOURS AND ATTENDS CHANGED PRN. ATTENDS ARE CURRENTLY C/D/I. CALL LIGHT IN REACH, BED IS LOCKED AND LOW WILL CONTINUE TO MONITOR UNTIL REPORT IS GIVEN TO ONCOMING RN.
[2018-08-01 08:58] LABS: BASOPHILS ABSOLUTE AUTO 0.04 K/mm3 (0.00-0.23); BASOPHILS PERCENT AUTO 1 % (0-2); EOSINOPHILS ABSOLUTE AUTO 0.29 K/mm3 (0.00-0.68); EOSINOPHILS PERCENT AUTO 4 % (0-6); Hematocrit 25.1 % (37.0-53.0); Hemoglobin 7.3 g/dL (13.5-17.5); IMMATURE GRAN ABSOLUTE AUTO 0.03 K/mm3 (0.00-0.10); IMMATURE GRAN PERCENT AUTO 0 % (0-1); LYMPHOCYTES ABSOLUTE AUTO 2.48 K/mm3 (0.84-5.20); LYMPHOCYTES PERCENT AUTO 36 % (21-46); MONOCYTES ABSOLUTE AUTO 0.39 K/mm3 (0.16-1.47); MONOCYTES PERCENT AUTO 6 % (4-13); Mean Corpuscular HGB 23.4 pg (26.0-34.0); Mean Corpuscular HGB Conc 29.1 g/dL (31.5-36.5); Mean Corpuscular Volume 80 fL (80-100); Mean Platelet Volume 9.1 fL (9.1-12.4); NEUTROPHILS ABSOLUTE AUTO 3.63 K/mm3 (1.96-9.15); NEUTROPHILS PERCENT AUTO 53 % (41-73); Platelet Count 206 K/mm3 (150-400); RDW Coefficient Variation 18.7 % (11.7-14.2); RDW Standard Deviation 54.2 fL (35.1-46.3); Red Blood Cell Count 3.12 M/mm3 (4.30-5.90); White Blood Cell Count 6.86 K/mm3 (4.00-11.30)
[2018-08-01 09:14] LABS: Anion Gap 6 mmol/L (6-16); Blood Urea Nitrogen 10 mg/dL (8-24); Bun/Creatinine Ratio 8.8 (12.0-20.0); CO2, Blood 27 mmol/L (21-32); Calcium, Blood 7.6 mg/dL (8.5-10.1); Chloride, Blood 113 mmol/L (98-108); Creatinine, Blood 1.14 mg/dL (0.60-1.20); Glomerular Filtration Rate >60 (60-); Glucose, Blood 102 mg/dL (70-99); Potassium, Blood 3.3 mmol/L (3.5-5.5); Sodium, Blood 146 mmol/L (136-145)
[2018-08-01] MEDS ORDERED: OMEPRAZOLE MAGN20 MG PO (13:34)
--- NOTE | 2018-08-01 14:00 | NUR ---
DR OTERO PLACED DISCHARGE ORDERS. MEDICATIONS RECONCILED. ATTEMPTED TO CALL SPOUSE LISTED IN CHART. SPOUSE STATES SHE WILL BE HERE IN AN HOUR BECAUSE SHE NEEDS A RIDE. WILL AWAIT ARRIVAL. PT VS STABLE. O2 SATS >90% ON RA. PT REPOSITIONED Q2H. PT ALERT BUT ONLY ANSWERS YES OR NO. PT INCONTINENT OF BOWEL AND BLADDER. SKIN C/D/I AND ATTENDS DRY. WILL CONTINUE TO MONITOR.
--- NOTE | 2018-08-01 15:00 | NUR ---
ATTEMPTED TO CONTACT . SPOKE WITH HER ON THE PHONE AND SHE [facility]FORE SHE COMES TO PICK HIM UP. SHE STATES THEY WILL NOT GIVE HER HIS "SEIZURE MEDS". I LET HER KNOW [facility] WOULD [facility]CT [facility]. SPOKE WITH [facility] AND THEY SAID HIS PRESCRIPTIONS WERE REFILLED AND SHE SHOULD BE ABLE TO PICK THEM UP. I CALLED THE SPOUSE BACK AND LET HER KNOW AND SHE STATED THAT SHE WAS "[facility] WITH [facility] AND TR[facility] TO GET [facility]S". SHE WOULD NOT LET ME SPEAK AND SHE SAID SHE WOULD NOT COME PICK HIM UP. I CONTACTED CASE MANAGEMENT AND LET THEM KNOW. CASE MANAGEMENT ATTEMPTED TO SPEAK WITH FAMILY. DR. OTERO NOTIFIED. WILL CONTINUE TO MONITOR.
--- NOTE | 2018-08-01 18:45 | NUR ---
SHIFT SUMMARY PT AWAITING DISCHARGE. UNABLE TO GET FAMILY TO COME MEAT BLENDER PT. APS HAS BEEN CALLED. DR. OTERO AWARE. CASE MANAGEMENT WORKING ON PLACEMENT. WILL REPORT TO ONCOMING RN. CALL LIGHT IN REACH.
--- NOTE | 2018-08-02 04:59 | NUR ---
SHIFT SUMMARY PT ALERT W/ GARBLED SPEECH. ANSWERS Y/N QUESTIONS. ORIENTED TO SELF AND FOLLOWS DIRECTIONS. PT INCONTINENT OF URINE, PRN VLADISLAV CARE AND ATTENDS CHANGES PROVIDED. PT ABLE TO ASSIST W/ POSITION CHANGES. PT DENIES PAIN OR DISCOMFORT T/O SHIFT. WILL CONTINUE TO MONITOR AND PROVIDE CARE UNTIL REPORT OFF TO DAY SHIFT RN.
--- NOTE | 2018-08-02 08:01 | NUR ---
START OF SHIFT NOTE: RECEIVED REPORT FROM GLEN GALARZA, ASSUMED CARE, PATIENT IS RESTING COMFORTABLY, OPENS EYES TO SPEECH, ABLE TO FOLLOW COMMANDS, DENIES PAIN, REPORTS NO CHEST PAIN/DISCOMFORT, DENIES SHORTNESS OF BREATH, CALL LIGHT IN REACH, BEDALARM ON, WILL CONTINUE TO MONITOR.
--- NOTE | 2018-08-02 12:42 | NUR ---
PATIENT ATE 50 % OF LUNCH WITH GOOD APPETITE, NO PROBLEM SWALLOWING, LIKES ENSURE SUPPLEMENTS, PATIENT WAS UPRIGHT DURING LUNCH TO AVOID ASPIRATION RISK.
--- NOTE | 2018-08-02 17:35 | NUR ---
SHIFT SUMMARY NOTE: PATIENT MOSTLY SLEPT DURING THIS SHIFT, CONFUSED, FA, SR, INCONTINENT, TURN AND CHANGE EVERY TWO HOURS, EATS WELL WITH ASSISTANCE, NO PROBLEM SWALLOWING, CALLED, WAS UPDATED ON SITUATION AND PATIENT CONDITION, FOR DETAILS SEE SHIFT ASSESSMENT DOCUMENTATION AND NURSES NOTES, CALL LIGHT IN REACH, WILL CONTINUE TO MONITOR AND GIVE REPORT TO ONCOMING TONE ARTIST APPRENTICE.
--- NOTE | 2018-08-02 20:20 | NUR ---
IN ROOM ASKING "IS HE READY TO GO HOME? I'M READY TO TAKE HIM." THIS NURSE ASKED ABOUT CARE FOR PT AT HOME AND STATES FAMILY HAS ARRIVED TO HELP W/ PT. CALL TO ALLI ROSARIO INQUIRING ABOUT DISCHARGE HOME D/T STANDING ORDERS BY MD OTERO 08/01/18 IN WHICH THE PT DID NOT DISCHARGE D/T REFUSING TO TAKE PT HOME AND STAFF CONCERNS FOR PT CARE AT HOME. MARINE ENGINEERING CONSULTANT ADDRESSING HOME NOT BEING AN OPTION FOR THE CARE THAT THE PT NEEDS AND NEEDING EVAL BY APS. D/T NOW BEING PRESENT AND STATING READINESS TO TAKE PT HOME, AND DISCHARGE ORDERS STANDING, INSTRUCTION FROM ALLI ROSARIO GIVEN TO SEND PT HOME PER MD ORDERS AND FOLLOW UP W/ APS.
--- NOTE | 2018-08-02 21:00 | NUR ---
PT NOW REFUSING TO TAKE PT HOME UNTIL SATURDAY, STATING SHE WILL NOT HAVE PT'[facility]IL THEN. PHARMACY OPTIONS DISCUSSED W/ PT'S W/ CONTINUED REFUSAL TO DISCHARGE UNTIL SATURDAY. PT'S NOW GONE AND PT REMAINS IN HOSPITAL.
[2018-08-03 04:49] LABS: BASOPHILS ABSOLUTE AUTO 0.04 K/mm3 (0.00-0.23); BASOPHILS PERCENT AUTO 1 % (0-2); EOSINOPHILS PERCENT AUTO 5 % (0-6); Hematocrit 27.4 % (37.0-53.0); IMMATURE GRAN ABSOLUTE AUTO 0.02 K/mm3 (0.00-0.10); IMMATURE GRAN PERCENT AUTO 0 % (0-1); LYMPHOCYTES ABSOLUTE AUTO 2.57 K/mm3 (0.84-5.20); LYMPHOCYTES PERCENT AUTO 39 % (21-46); MONOCYTES ABSOLUTE AUTO 0.37 K/mm3 (0.16-1.47); MONOCYTES PERCENT AUTO 6 % (4-13); Mean Corpuscular HGB 23.3 pg (26.0-34.0); Mean Corpuscular HGB Conc 29.2 g/dL (31.5-36.5); Mean Corpuscular Volume 80 fL (80-100); Mean Platelet Volume 9.3 fL (9.1-12.4); NEUTROPHILS ABSOLUTE AUTO 3.26 K/mm3 (1.96-9.15); NEUTROPHILS PERCENT AUTO 50 % (41-73); Platelet Count 230 K/mm3 (150-400); RDW Coefficient Variation 18.8 % (11.7-14.2); RDW Standard Deviation 53.4 fL (35.1-46.3); Red Blood Cell Count 3.44 M/mm3 (4.30-5.90); White Blood Cell Count 6.56 K/mm3 (4.00-11.30)
--- NOTE | 2018-08-03 05:10 | NUR ---
SHIFT SUMMARY PT ALERT, ORIENTED TO SELF AND FAMILY, CALM, COOPERATIVE, AND FOLLOWING INSTRUCTIONS. PT'S GARBLED SPEECH CLEARING. PT IMPROVING FROM ANSWERING Y/N QUESTIONS TO NOW STATING TO THIS NURSE "BATHROOM" AFTER EPISODE OF INCONTINENCE. PT INCONTINENT OF URINE AND BOWEL, WEARING ATTENDS. Q2H REPOSITIONING AND PRN VLADISLAV CARE/ATTENDS CHANGES PROVIDED. PT'S IN TO SEE PT BEGINNING OF SHIFT W/ DESIRE TO TAKE PT HOME TO THEN STATE SHE WILL NOT TAKE HIM HOME UNTIL SATURDAY, SEE PREVIOUS NOTES. PT IN ROOM W/ CALL LIGHT IN REACH. WILL CONTINUE TO MONITOR AND PROVIDE CARE UNTIL REPORT OFF TO DAY SHIFT RN.
[2018-08-03 05:13] LABS: Anion Gap 8 mmol/L (6-16); Blood Urea Nitrogen 7 mg/dL (8-24); CO2, Blood 24 mmol/L (21-32); Calcium, Blood 7.8 mg/dL (8.5-10.1); Chloride, Blood 110 mmol/L (98-108); Glomerular Filtration Rate >60 (60-); Glucose, Blood 105 mg/dL (70-99); Potassium, Blood 3.5 mmol/L (3.5-5.5); Sodium, Blood 142 mmol/L (136-145)
--- NOTE | 2018-08-03 17:58 | NUR ---
SHIFT SUMMARY PT RESTING IN BED THROUGHOUT THE DAY. UP TO CHAIR WITH PHYSICAL THERAPY WITH A FWW AND GAIT BELT, 1 PERSON ASSIST. BED ALARM ON WHEN IN BED. DENIES PAIN THROUGHOUT THE DAY. ALERT AND ORIENTED TO SELF AND PLACE. GARBLED SPEECH, DIFFICULT TO UNDERSTAND. LEFT FACIAL DROOP NOTED. LUNG SOUNDS CLEAR, DIMINISHED BASES. 1+ PITTING EDEMA TO BLE. INCONTINENT OF URINE. NO COMMUNICATION WITH TODAY, PT AWAITING DISCHARGE TOMORROW. WILL CONTINUE TO MONITOR.
--- NOTE | 2018-08-04 04:40 | NUR ---
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 SS & APS INVOLVED. PT ALERT, ORIENTED TO SELF, NOW ABLE TO STATE NAME AND DATE OF THOUGH SPEECH CONTINUES TO BE GARBLED. PT STRENGTH ALSO INCREASING. PT NOW ABLE TO SIT SELF UP TO EDGE OF BED W/OUT ASSISTANCE AND REPOSITIONING SELF IN BED. PT CONTINUES TO BE INCONTINENT OF URINE T/O SHIFT. PRN VLADISLAV CARE/ATTENDS CHANGES PROVIDED. LUNG SOUNDS COARSE T/O. SPO2 > 92% ON RA. PT IN BED W/ CALL LIGHT IN REACH. WILL CONTINUE TO MONITOR AND PROVIDE CARE UNTIL REPORT OFF TO DAY SHIFT RN.
[2018-08-04] MEDS ORDERED: XARELTO20 MG PO (14:02)
--- NOTE | 2018-08-04 14:35 | NUR ---
DISCHARGE NOTE PT STABLE FOR DISCHARGE. DISCHARGE INSTRUCTIONS AND DISCHARGE MEDICATIONS REVIEWED WITH PT'S GRANDSON. GRANDSON VERBALIZES UNDERSTANDING AND DENIES QUESTIONS. PT DISCHARGED VIA WHEELCHAIR TO WAITING CAR.
== END 2018-08-04 14:20 | disposition home or self-care (01) | DRG 871 ==
LOC: ER 10:47 → PCU 14:19 → ERHOLD 14:19 → EDBEDREQ 15:22 → PCU 17:00
PROVIDERS: Emergency Medicine; Hospitalist; Nurse Practitioner Acute Care; ADMIT Family Medicine
DX: A41.9 Sepsis, unspecified organism (principal); G93.41 Metabolic encephalopathy; K92.0 Hematemesis; N17.9 Acute kidney failure, unspecified; K56.7 Ileus, unspecified; N39.0 Urinary tract infection, site not specified; G40.909 Epilepsy, unspecified, not intractable, without status epilepticus; D50.9 Iron deficiency anemia, unspecified; G89.4 Chronic pain syndrome; N40.1 Benign prostatic hyperplasia with lower urinary tract symptoms; Z79.82 Long term (current) use of aspirin; Z91.81 History of falling; I69.320 Aphasia following cerebral infarction
CPT/HCPCS: 36415; 36430; 70450; 71045; 71250; 74019; 74176; 80048; 80053; 80177; 82550; 82553; 83605; 83735; 84145; 84443; 84484; 85014; 85018; 85025; 85610; 85730; 86850; 86900; 86901; 86920; 86923; 87040; 93005; 93010; 96361; 96365; 96375; 96376; 97162; 97530; 99285-25; C9113; J0456; J0696; J1953; J1956; J2765; J3010; J7030; J7050; P9016

== ENCOUNTER 2019-03-28 13:20 | Emergency (ER) | payer MEDICARE ==
[~2019-03-28] VITALS: Ht 200.7 cm; Wt 102.1 kg
[~2019-03-28 13:20] MED LIST changes: +ASCO500 PO; +Aspir 8181 MG PO; +LEVE500 PO; +OMEPRAZOLE MAGN20 MG PO; +POTCHL10ER PO; +XARELTO20 MG PO; +[UNRECOGNIZED DRUG - MIXTURE] TOP
[2019-03-28 13:48] LABS: Source, Urine Catheter
[2019-03-28 13:54] LABS: BASOPHILS ABSOLUTE AUTO 0.05 K/mm3 (0.00-0.23); BASOPHILS PERCENT AUTO 1 % (0-2); EOSINOPHILS PERCENT AUTO 1 % (0-6); Hematocrit 42.8 % (37.0-53.0); Hemoglobin 14.1 g/dL (13.5-17.5); IMMATURE GRAN ABSOLUTE AUTO 0.04 K/mm3 (0.00-0.10); IMMATURE GRAN PERCENT AUTO 1 % (0-1); LYMPHOCYTES ABSOLUTE AUTO 2.28 K/mm3 (0.84-5.20); LYMPHOCYTES PERCENT AUTO 27 % (21-46); MONOCYTES ABSOLUTE AUTO 0.47 K/mm3 (0.16-1.47); MONOCYTES PERCENT AUTO 6 % (4-13); Mean Corpuscular HGB 29.9 pg (26.0-34.0); Mean Corpuscular HGB Conc 32.9 g/dL (31.5-36.5); Mean Corpuscular Volume 91 fL (80-100); Mean Platelet Volume 9.2 fL (9.1-12.4); NEUTROPHILS ABSOLUTE AUTO 5.57 K/mm3 (1.96-9.15); NEUTROPHILS PERCENT AUTO 65 % (41-73); Platelet Count 241 K/mm3 (150-400); RDW Coefficient Variation 13.6 % (11.7-14.2); RDW Standard Deviation 46.2 fL (35.1-46.3); Red Blood Cell Count 4.72 M/mm3 (4.30-5.90); White Blood Cell Count 8.51 K/mm3 (4.00-11.30)
[2019-03-28 14:11] LABS: Bilirubin, Urine Neg (Neg); Blood, Urine 1+ (Neg); Glucose Qualitative, Urine Neg (Neg); Ketones, Urine Neg (Neg); Leukocyte Esterase, Urine 3+ (Neg); Nitrite, Urine Pos (Neg); Protein, Urine 1+ (Neg); Urobilinogen, Urine NORM (Normal)
[2019-03-28 14:16] LABS: Alanine Aminotransfer (ALT/SGP 26 U/L (12-78); Albumin, Blood 3.4 g/dL (3.4-5.0); Albumin/Globulin Ratio 0.9 (0.8-1.8); Alk Phos 146 U/L (50-136); Anion Gap 8 mmol/L (6-16); Aspartate Aminotrans (AST/SGOT 17 U/L (12-37); Bilirubin, Total 0.2 mg/dL (0.1-1.0); Blood Urea Nitrogen 18 mg/dL (8-24); Bun/Creatinine Ratio 14.5 (12.0-20.0); CO2, Blood 26 mmol/L (21-32); Calcium, Blood 8.9 mg/dL (8.5-10.1); Chloride, Blood 109 mmol/L (98-108); Creatinine, Blood 1.24 mg/dL (0.60-1.20); Globulin, Blood 3.8 g/dL (2.2-4.0); Glomerular Filtration Rate >60 (60-); Glucose, Blood 111 mg/dL (70-99); Potassium, Blood 4.3 mmol/L (3.5-5.5); Sodium, Blood 143 mmol/L (136-145); Total Protein, Blood 7.2 g/dL (6.4-8.2)
[2019-03-28 14:28] LABS: Appearance, Urine Hazy (Clear); Color, Urine Yellow (P-Yellow)
[2019-03-28 14:30] LABS: Bacteria Many /hpf; Squamous Epithelial Cells Rare /hpf (Few)
[2019-03-28] MEDS ORDERED: CEPH500 PO (17:00)
[2019-03-29] MEDS ORDERED: DULO30 PO (03:15)
[2019-03-29] MEDS ORDERED: FERSU90EL PO (03:16)
[2019-03-29] MEDS ORDERED: FERSU300 PO (03:16)
[2019-03-29] MEDS ORDERED: FURO20 PO (03:17)
[2019-03-29] MEDS ORDERED: LACT PO (03:17)
[2019-03-29] MEDS ORDERED: Milk Of Ma400 MG/5 M PO (03:18)
[2019-03-29] MEDS ORDERED: PANT20 PO (03:18)
[2019-03-29] MEDS ORDERED: POTA20PAC PO (03:19)
== END 2019-03-28 18:35 | disposition home or self-care (01) ==
LOC: ER 13:20
PROVIDERS: Emergency Medicine
DX: N39.0 Urinary tract infection, site not specified (principal); I10 Essential (primary) hypertension; F32.9 Major depressive disorder, single episode, unspecified; K21.9 Gastro-esophageal reflux disease without esophagitis; Z86.73 Personal history of transient ischemic attack (TIA), and cerebral infarction without residual deficits; Z79.899 Other long term (current) drug therapy; Z79.82 Long term (current) use of aspirin; Z79.01 Long term (current) use of anticoagulants
CPT/HCPCS: 36415; 51701; 80053; 81001; 85025; 87077; 87086; 87186; 93005; 93010; 96365-59; 99284-25; J0696

== ENCOUNTER 2019-03-28 22:27 | Inpatient (IN) | payer MEDICARE ==
[~2019-03-28] VITALS: Ht 200.7 cm; Wt 94.2 kg
[~2019-03-28 22:27] MED LIST changes: +CEPH500 PO
--- NOTE | 2019-03-29 02:07 | NUR ---
ARRIVAL NOTE PT ARRIVED TO UNIT VIA STRETCHER, SLIDE TRANSFER TO BED. PT IS MOSTLY NONVERBAL, STIFF AND RIGID EXTREMITIES. ABLE TO FOLLOW DIRECTIONS AND IS REDIRECTABLE. ANSWERS NAME AND , ANSWERS NO TO BEING ABLE TO WALK, ANSWERS YES TO BEING BEDRIDDEN AT HOME. REDNESS NOTED TO BUTTOCKS AND PERIAREA, NO BREAKDOWN. BLADDER SCAN 165 ML. ASSUMING CARE OF PT.
[2019-03-29] MEDS ORDERED: DULO30 PO (03:15)
[2019-03-29] MEDS ORDERED: FERSU90EL PO (03:16)
[2019-03-29] MEDS ORDERED: FERSU300 PO (03:16)
[2019-03-29] MEDS ORDERED: LACT PO (03:17)
[2019-03-29] MEDS ORDERED: FURO20 PO (03:17)
[2019-03-29] MEDS ORDERED: Milk Of Ma400 MG/5 M PO (03:18)
[2019-03-29] MEDS ORDERED: PANT20 PO (03:18)
[2019-03-29] MEDS ORDERED: POTA20PAC PO (03:19)
--- NOTE | 2019-03-29 03:42 | NUR ---
BEGINNING SHIFT SUMMARY ASSUMED CARE OF PT @ 0113. ER REPORTED THAT PT WAS BROUGHT IN EARLIER BY HIS FOR ALTERED MENTAL STATUS. THEY FOUND HIS SOAKED IN HIS URINE AND TESTED POSITVE FOR A UTI. PT WAS DISCHARGED BACK HOME TO VIA EMS BUT THE PT REFUSED TO BE DROPPED OFF WITH BECAUSE HE DIDNT RECOGNIZE HER. THE STATED TO THE EMS THAT SHE COULD NO LONGER CARE FOR HIM DUE TO HIS CONDITION. THE PT IS CALM AND COORPOERATIVE, CAN FOLLOW COMMONDS APPROPIATLY. HX STATED THAT HE HAS HAD EPRESSIVE DYSPHAGIA SINCE 2014. PT WILL ANSWER YES/NO QUESTIONS BY NODDING. 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 PT HAS GROSS MOTOR SKILLS OF ALL LIMBS. HEART SOUNDS DISTNT BUT REGULAR, BILATERAL LOWER EXTRMITY PULSES WEAK, CAP REFILL > 3 SEC, +1 PITTING EDEMA IN FEET, 22 G IV IN L WRIST, SCUDS ON. LUNG SOUNDS CLEAR IN ALL FEILDS, PEPE SOB. BOWEL SOUNDS HYPERACTIVE, NONTENDER ABDOMEN, PT CAN'T REMEBER LAST BOWEL MOVMENT. PT HAS HX OF URINE RETENTION, FOUND 165ML OF URINE IN BLADDER AFTER BLANDER SCANNING HIM. SKIN HAS VARIES SCRAPES THROUGHOUT, SCARS ON L KNEE AND BELLY BUTTON, SLIGHT REDNESS TO VLADISLAV AREA. PT FINISHED I ROUND OF ROCEPHEN IN ER BEFORE TRANSFERING. PT IS CURRENTLY SLEEPING. CALL LIGHT IN REACH, BED IN LOWEST POSITION, BED ALARM ON, WILL CONTINUE TO MONITOR.
--- NOTE | 2019-03-29 05:07 | NUR ---
END OF SHIFT SUMMARY NO ACUTE CHANGES NOTED THROUGHOUT THE SHIFT. PT IS CURRENTLY SLEEPING ON HIS L SIDE WITH A PILLOW BETWEEN HIS LEGS. CALL LIGHT IN REACH, BED IN LOWEST POSITION, BED ALARM ON, WILL CONTINUE TO MONITOR UNTIL DAYSHIFT NURSE ARRIVES.
[2019-03-29 05:16] LABS: Anion Gap 6 mmol/L (6-16); Blood Urea Nitrogen 17 mg/dL (8-24); CO2, Blood 26 mmol/L (21-32); Calcium, Blood 8.4 mg/dL (8.5-10.1); Chloride, Blood 110 mmol/L (98-108); Creatinine, Blood 1.21 mg/dL (0.60-1.20); Glomerular Filtration Rate >60 (60-); Glucose, Blood 108 mg/dL (70-99); Potassium, Blood 3.8 mmol/L (3.5-5.5); Sodium, Blood 142 mmol/L (136-145)
--- NOTE | 2019-03-29 11:07 | NUR ---
CALLED PT VENANCIO TO ASCERTAIN PT'S MOBILITY. SHE STATE HE IS NONAMBULATORY, USES LIFT @ HOME FOR TRANSFERS @ BASELINE.
--- NOTE | 2019-03-29 17:31 | NUR ---
SUMMARY PT HAS HX CVA w APHASIA, HX TBI. SPEECH IS DIFFICULT TO UNDERSTAND, NODS YES/NO TO ASSIST w COMMUNICATION, ANSW APPROP TO SIMPLE BASIC QUESTIONS. DIET @ THIS TIME PUREED/NECTAR THICK UNTIL ST EVAL IN AM, PT UNHAPPY W FOOD TEXTURES. PHYTHER IN FOR TX/EV, PT VERY UNSTEADY, DIFFICULTY STANDING STRAIGHT UP, [facility] ST[facility], PHYTHER RECOMMEND LIFT (SIT-STAND). PT STATE USES LIFT @ HOME. MADE COMMENTS TODAY BY PHONE THAT SHE IS UNABLE TO CONTINUE PT CARE. THIS EVENING SHE CAME TO HOSP ASSISTED W FEEDING DINNER & STATED THAT SHE WAS GOING TO STAY THE NITE. DURING VISIT PT & DEMONSTRATE HIGH TENSION @ ONE POINT PT THREATENING TO HIT HER WITH REMOTE. STATE SHE HAS HAD ENOUGH & LEFT ROOM. PT ABLE TO CALM HOWEVER SHE COME BACK TO ROOM, AUDITOR IN CHARGE INTERVENE @ THIS TIME, EXPECTATIONS REVIEWED, ASKED TO LEAVE @ THIS TIME UNTIL [facility] ABLE TO SORT OUT SITUATION.
--- NOTE | 2019-03-30 05:44 | NUR ---
SHIFT SUMMARY PT PLEASANT AND COOPERATIVE THROUGHOUT THE NIGHT. HAS A DIFFICULT TIME COMMUNICATING DUE TO APHASIA FROM PAST CVA'S. FOLLOWS COMMANDS WELL AND ANSWERS SIMPLE QUESTIONS APPROPRIATELY. PT INCONTINENT. ATTENDS IN PLACE. NO COMPLAINTS OF PAIN. SLEPT OFF AND ON THROUGHOUT THE NIGHT. REMAINED IN BED. OFFERED NECTAR THICK WATER WHICH PT DECLINED. TOOK PILLS WELL CRUSHED IN APPLESAUCE. PT DID ATTEMPT TO GET OOB X 1, BED ALARM ON, OTHERWISE PT USED CALL LIGHT FOR NEEDS. NO VISITORS THIS EVENING. NO ACUTE CHANGES. VSS. WILL CONTINUE TO MONITOR AND REPORT TO DAY RN.
--- NOTE | 2019-03-30 16:35 | NUR ---
SHIFT SUMMARY PT IMPULSIVE. GETS UP FROM CHAIR TO BED W/FWW AND GAITBELT. CONFUSED, UNAWARE OF OWN LIMITATIONS. THERE ARE SOME HOME DYNAMICS INVOLVED, BUT PRINCIPAL NETWORK ARCHITECT HAS PROVIDED THEIR INPUT AND THE PLAN IS TO DC HOME TOMORROW . CARE MANAGEMENT IS ON THE CASE WELL. PT MEDS ARE CRUSHED IN APPLESAUCE.
--- NOTE | 2019-03-31 04:09 | NUR ---
SHIFT SUMMARY PT APPEARED TO SLEEP OFF AND ON. HE DID DEMONSTRATE IMPUSLIVE BEHAVIOR LAST NIGHT BY TRYING TO GET OUT OF BED WITHOUT CALLING. BED ALARM IS ON AND CALL LIGHT IS IN REACH. IT IS VERY DIFFICULT TO UNDERSTAND PT AND HE HAS A FLAT AFFECT. WILL CONTINUE TO MONITOR.
[2019-03-31] MEDS ORDERED: CEPH500 PO (12:09)
--- NOTE | 2019-03-31 14:18 | NUR ---
review of polst with nursing will be in. Advsnce directive information given. will follow up. pt VA pt has VA document on record.
--- NOTE | 2019-03-31 16:20 | NUR ---
1620 PATIENT WAITING FOR TO COME FOR DISCHARGE. THIS NURSE CALLED AROUND 1300 AND SHE STATED SHE WAS WAITING FOR HER RIDE TO ARRIVE BEFORE SHE CAME AND PICKED UP THE PATIENT. NURSE HAS TAKEN OUT IV AND WILL GO OVER DISCHARGE PAPERS WITH PATIENT ONCE FAMILY ARRIVED.
--- NOTE | 2019-03-31 19:49 | NUR ---
PATIENT FAMILY ARRIVED TO TAKE THE PATIENT HOME. IV HAS ALREADY BEEN REMOVED. GAVE HIS 2100 KEPPRA PER FAMILY REQUEST. PATIENT TRANSFERED TO WHEEL CHAIR AND ESCORTED OUT. PT PAPERWORK REVIEWED AND SIGNED BY . DISCHARGE COMPLETE.
== END 2019-03-31 19:46 | disposition home health service (06) | DRG 689 ==
LOC: ER 22:27 → MEDS 03-29 00:05 → ERHOLD 03-29 00:05 → MEDS 03-29 01:54
PROVIDERS: ADMIT Family Medicine
DX: N39.0 Urinary tract infection, site not specified (principal); G92 Toxic encephalopathy; B96.20 Unspecified Escherichia coli [E. coli] as the cause of diseases classified elsewhere; F01.50 Vascular dementia, unspecified severity, without behavioral disturbance, psychotic disturbance, mood disturbance, and anxiety; I10 Essential (primary) hypertension; N40.0 Benign prostatic hyperplasia without lower urinary tract symptoms; K21.9 Gastro-esophageal reflux disease without esophagitis; E78.5 Hyperlipidemia, unspecified; I69.920 Aphasia following unspecified cerebrovascular disease
CPT/HCPCS: 36415; 70450; 80048; 92610; 96374; 97110; 97161; 97165; 97530; 97535; 99285-25; J0696

== ENCOUNTER 2019-04-23 12:30 | Emergency (ER) | payer MEDICARE ==
[~2019-04-23] VITALS: Ht 182.9 cm; Wt 99.8 kg
[~2019-04-23 12:30] MED LIST changes: +DULO30 PO; +FERSU300 PO; +FERSU90EL PO; +LACT PO; +Milk Of Ma400 MG/5 M PO; +PANT20 PO; +POTA20PAC PO
[2019-04-23] MEDS ORDERED: THERA-D2000 UNIT PO (13:06)
[2019-04-23] MEDS ORDERED: POTCHL20ER PO (13:15)
[2019-04-23 13:16] LABS: BASOPHILS ABSOLUTE AUTO 0.05 K/mm3 (0.00-0.23); BASOPHILS PERCENT AUTO 1 % (0-2); EOSINOPHILS ABSOLUTE AUTO 0.29 K/mm3 (0.00-0.68); EOSINOPHILS PERCENT AUTO 4 % (0-6); Hematocrit 43.5 % (37.0-53.0); Hemoglobin 14.2 g/dL (13.5-17.5); IMMATURE GRAN ABSOLUTE AUTO 0.02 K/mm3 (0.00-0.10); IMMATURE GRAN PERCENT AUTO 0 % (0-1); LYMPHOCYTES ABSOLUTE AUTO 2.38 K/mm3 (0.84-5.20); LYMPHOCYTES PERCENT AUTO 29 % (21-46); MONOCYTES ABSOLUTE AUTO 0.49 K/mm3 (0.16-1.47); MONOCYTES PERCENT AUTO 6 % (4-13); Mean Corpuscular HGB 30.4 pg (26.0-34.0); Mean Corpuscular HGB Conc 32.6 g/dL (31.5-36.5); Mean Corpuscular Volume 93 fL (80-100); Mean Platelet Volume 8.8 fL (9.1-12.4); NEUTROPHILS ABSOLUTE AUTO 5.07 K/mm3 (1.96-9.15); NEUTROPHILS PERCENT AUTO 61 % (41-73); Platelet Count 265 K/mm3 (150-400); RDW Coefficient Variation 14.3 % (11.7-14.2); RDW Standard Deviation 48.1 fL (35.1-46.3); Red Blood Cell Count 4.67 M/mm3 (4.30-5.90)
[2019-04-23 13:22] LABS: Source, Urine Catheter
[2019-04-23 13:30] LABS: Bilirubin, Urine Neg (Neg); Blood, Urine 3+ (Neg); Glucose Qualitative, Urine Neg (Neg); Ketones, Urine Neg (Neg); Leukocyte Esterase, Urine Neg (Neg); Nitrite, Urine Neg (Neg); Protein, Urine Neg (Neg); Urobilinogen, Urine NORM (Normal)
[2019-04-23 13:36] LABS: Albumin, Blood 3.5 g/dL (3.4-5.0); Albumin/Globulin Ratio 0.8 (0.8-1.8); Bilirubin, Total 0.3 mg/dL (0.1-1.0); Bun/Creatinine Ratio 17.4 (12.0-20.0); Calcium, Blood 8.9 mg/dL (8.5-10.1); Creatinine, Blood 1.44 mg/dL (0.60-1.20); Globulin, Blood 4.2 g/dL (2.2-4.0); Potassium, Blood 3.9 mmol/L (3.5-5.5); Total Protein, Blood 7.7 g/dL (6.4-8.2)
[2019-04-23 13:38] LABS: Appearance, Urine Clear (Clear); Color, Urine Yellow (P-Yellow)
[2019-04-23 13:39] LABS: Bacteria Mod /hpf; Mucus Light (0-Heavy); Red Blood Cells, Urine 0-2 /hpf (0-2); Squamous Epithelial Cells Few /hpf (Few); White Blood Cells, Urine 0-2 /hpf (0-5)
[2019-04-23 14:46] LABS: PCO2 Arterial 38.7 mmHg (35-45); PO2 Arterial 90.8 mmHg (80-100)
== END 2019-04-23 19:28 | disposition home or self-care (01) ==
LOC: ER 12:30
PROVIDERS: Emergency Medicine
DX: F03.90 Unspecified dementia, unspecified severity, without behavioral disturbance, psychotic disturbance, mood disturbance, and anxiety (principal); R53.1 Weakness; R60.0 Localized edema; Z79.899 Other long term (current) drug therapy; Z79.82 Long term (current) use of aspirin; I10 Essential (primary) hypertension; Z86.73 Personal history of transient ischemic attack (TIA), and cerebral infarction without residual deficits; G40.909 Epilepsy, unspecified, not intractable, without status epilepticus; K21.9 Gastro-esophageal reflux disease without esophagitis
CPT/HCPCS: 36415; 36600; 51701; 71045; 80053; 81001; 82803; 85025; 87086; 93005; 93010; 99284-25

== ENCOUNTER 2019-05-16 18:29 | Emergency (ER) | payer OTHER, MEDICARE ==
[~2019-05-16] VITALS: Ht 188 cm; Wt 90.7 kg
[~2019-05-16 18:29] MED LIST changes: +POTCHL20ER PO; +THERA-D2000 UNIT PO
[2019-05-16 20:50] LABS: Calcium, Ionized (POC) 1.19 mmol/L (1.10-1.46); Chloride (POC) 106 mmol/L (98-108); Creatinine (POC) 1.2 mg/dL (0.8-1.3); Glucose (ISTAT POC) 104 mg/dL (70-99); Hemoglobin (POC) 13.9 g/dL (13.5-17.5); Potassium (POC) 4.1 mmol/L (3.5-5.5); Sodium (POC) 140 mmol/L (135-148); Total CO2 (POC) 27 mmol/L (21-32)
[2019-05-16 21:02] LABS: Source, Urine Clean Catch
[2019-05-16 21:05] LABS: Appearance, Urine Clear (Clear); Bilirubin, Urine Neg (Neg); Blood, Urine 2+ (Neg); Color, Urine Yellow (P-Yellow); Glucose Qualitative, Urine Neg (Neg); Ketones, Urine Neg (Neg); Leukocyte Esterase, Urine Neg (Neg); Nitrite, Urine Neg (Neg); Protein, Urine Neg (Neg); Urobilinogen, Urine NORM (Normal)
[2019-05-16 21:11] LABS: Bacteria Few /hpf; Squamous Epithelial Cells Rare /hpf (Few); White Blood Cells, Urine 0-2 /hpf (0-5)
== END 2019-05-17 00:25 | disposition home or self-care (01) ==
LOC: ER 18:29
PROVIDERS: Emergency Medicine
DX: R41.82 Altered mental status, unspecified (principal); I10 Essential (primary) hypertension; D64.9 Anemia, unspecified; F32.9 Major depressive disorder, single episode, unspecified; Z86.73 Personal history of transient ischemic attack (TIA), and cerebral infarction without residual deficits; Z79.82 Long term (current) use of aspirin; Z79.899 Other long term (current) drug therapy
CPT/HCPCS: 51701; 80047; 81001; 85014; 93005; 93010; 99284-25